=== PATIENT | male | born 1975 | race Hispanic/Latino ===

== ENCOUNTER 2019-04-22 11:49 | Inpatient (IN) | payer OTHER ==
[~2019-04-22] VITALS: Ht 177.8 cm; Wt 93.7 kg
[2019-04-22] MEDS: SODIUM CHLORIDE 0.9% 1000ML 1,000 ML IV SCH ×2 (01:45→16:45)
[~2019-04-22 11:49] MED LIST: CLARITIN10 M2 PO; LISINOPRIL10 MG PO; NEXIUM40 MG PO; PRAVASTATIN SOD40 MG PO
--- OUTSIDE RECORDS SUMMARY | 2019-04-22 11:53 | XMS REPORT | Encounter Summary ---
Author Organization Unknown Address [address] [place] [address] Phone [phone] Reason for Visit Medical Complaint Instructions None recorded. Discussion Note: None recorded. Patient educational handouts: No information available. Plan of Care Reminders Provider Appointments None recorded. Lab None recorded. Referral None recorded. Procedures None recorded. Surgeries None recorded. Imaging None recorded. Medications Name Start Date atorvastatin 80 mg tablet Decara 50,000 unit capsule dicyclomine 20 mg tablet econazole 1 % topical cream esomeprazole magnesium 20 mg capsule,delayed release ezetimibe 10 mg tablet fluconazole 150 mg tablet gemfibrozil 600 mg tablet hydroxyzine HCl 10 mg tablet ivermectin 3 mg tablet lisinopril 30 mg tablet losartan 50 mg tablet metformin ER 500 mg tablet,extended release 24 hr OneTouch Ultra Blue Test Strip pravastatin 80 mg tablet prednisone 10 mg tablet triamcinolone acetonide 0.1 % topical cream Verdeso 0.05 % topical foam Medications Administered None recorded. Vitals Weight Blood Pressure 217 lbs Lab Results None recorded. Allergies None recorded. Problems None recorded. Procedures None recorded. Vaccine List None recorded. Social History None recorded. Past Encounters 04/10/2018 Noemy Ayala PA-C: [address] [place] [address], Ph. History of Present Illness None recorded. Review of Systems Basic Reported By: Patient Physical Exam Adult Basic, Adult Male Complete Reported By: Patient
--- OUTSIDE RECORDS SUMMARY | 2019-04-22 11:53 | XMS REPORT | Continuity of Care Document ---
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 Role Phone [employer] Unavailable Unavailable Problems No Data Provided for This Section Medications Medication Details Route Status Patient Instructions Ordering Provider Order Date Source atorvastatin 80 MG Oral Tablet atorvastatin 80 mg tablet Active [facility] Cholecalciferol 61631 UNT Oral Capsule [Decara] Decara 50,000 unit capsule Active [facility] Dicyclomine Hydrochloride 20 MG Oral Tablet dicyclomine 20 mg tablet Active [facility] Econazole Nitrate 10 MG/ML Topical Cream econazole 1 % topical cream Active [facility] Esomeprazole 20 MG Delayed Release Oral Capsule esomeprazole magnesium 20 mg capsule,delayed release Active [facility] ezetimibe 10 MG Oral Tablet ezetimibe 10 mg tablet Active [facility] Fluconazole 150 MG Oral Tablet fluconazole 150 mg tablet Active [facility] Gemfibrozil 600 MG Oral Tablet gemfibrozil 600 mg tablet Active [facility] Hydroxyzine Hydrochloride 10 MG Oral Tablet hydroxyzine HCl 10 mg tablet Active [facility] Ivermectin 3 MG Oral Tablet ivermectin 3 mg tablet Active [facility] Lisinopril 30 MG Oral Tablet lisinopril 30 mg tablet Active [facility] Losartan Potassium 50 MG Oral Tablet losartan 50 mg tablet Active [facility] 24 HR Metformin hydrochloride 500 MG Extended Release Oral Tablet metformin ER 500 mg tablet,extended release 24 hr Active [facility] OneTouch Ultra Blue Test Strip OneTouch Ultra Blue Test Strip Active [facility] Pravastatin Sodium 80 MG Oral Tablet pravastatin 80 mg tablet Active [facility] Prednisone 10 MG Oral Tablet prednisone 10 mg tablet Active [facility] Triamcinolone Acetonide 1 MG/ML Topical Cream triamcinolone acetonide 0.1 % topical cream Active [facility] Desonide 0.5 MG/ML Topical Foam [Verdeso] Verdeso 0.05 % topical foam Active [facility] Allergies, Adverse Reactions, Alerts No Known Medication Allergies Immunizations No Data Provided for This Section Results No Data Provided for This Section Pathology Reports No Data Provided for This Section Diagnostic Reports No Data Provided for This Section Consultation Notes No Data Provided for This Section Discharge Summaries No Data Provided for This Section History and Physicals No Data Provided for This Section Vital Signs Vital Sign Value Date Comments Source Weight 217 04/10/2018 [facility] Encounters Location Location Details Encounter Type Encounter Number Reason For Visit Attending Provider ADM Date DC Date Status Source [place] - [id number] Noemy Ayala PA-C: [address] [place] [address], Ph. [id number] Noemy Ayala 04/10/2018 [facility] Procedures No Data Provided for This Section Assessment and Plan No Data Provided for This Section Plan of Care No Data Provided for This Section Social History No Data Provided for This Section Family History No Data Provided for This Section Advance Directives No Data Provided for This Section Functional Status No Data Provided for This Section
[2019-04-22] MEDS ORDERED: MORPHINE SULFATE INJ 4 MG/ML INJ 1ML IV STA (11:56)
[2019-04-22] MEDS ORDERED: ONDANSETRON HCL INJ 2MG/ML 2ML 2 MG/ML VIAL IV STA ×2 (11:56→13:43)
[2019-04-22] MEDS ORDERED: SODIUM CHLORIDE 0.9% 1000ML 1,000 ML IV STA (11:56)
[2019-04-22] MEDS ORDERED: SODIUM CHLORIDE 0.9% 1000ML 1,000 ML IV SCH (12:00)
[2019-04-22] MEDS ORDERED: DIATRIZOATE MEGL/DIATRIZOA SOD 30 ML BTL PO ONE (12:11)
--- NOTE | 2019-04-22 12:18 | NUR ---
RADIOLOGY AT BEDSIDE FOR CXR AT THIS TIME.
[2019-04-22 12:30] LABS: INR 0.89; PROTHROMBIN TIME 12.5 seconds (11.9-14.5)
[2019-04-22 12:39] LABS: ALBUMIN 4.3 g/dL (3.5-5.0); ALBUMIN/GLOBULIN RATIO 0.5 (0.8-2.0); AMYLASE 79 U/L (25-125); CALCIUM 10.8 mg/dL (8.4-10.2); LIPASE 168 U/L (8-78)
--- NOTE | 2019-04-22 12:55 | Diagnostic Imaging Report ---
EXAM: CHEST SINGLE (PORTABLE) DATE: 04/22/2019 11:56 AM INDICATION: Elevated blood sugar COMPARISON: None FINDINGS: The trachea is midline. The lungs are symmetrically expanded without evidence for large focal consolidation, pneumothorax, or significant pleural effusion. The cardiac silhouette appears magnified by technique. Mediastinal contours are unremarkable. No acute osseous abnormality is identified. The surrounding soft tissues are unremarkable. IMPRESSION: No acute cardiopulmonary process identified. Signed by: Dr. Isaias Del Rio MD on 04/22/2019 12:51 PM
[2019-04-22 12:57] LABS: BUN/CREATININE RATIO 15 (6-25); CHLORIDE 95 mmol/L (101-111); EST GLOMERULAR FILTRATION RATE > 60 ML/MIN (60-); SODIUM 127 mmol/L (136-144)
[2019-04-22 12:58] LABS: BLOOD UREA NITROGEN 15 mg/dL (8-26); CARBON DIOXIDE 25 mmol/L (22-32)
[2019-04-22 13:01] LABS: GLUCOSE 425 mg/dL (74-118)
--- NOTE | 2019-04-22 13:02 | NUR ---
critical lab value called pt bs 425; demetrius garcia notified
[2019-04-22 13:05] LABS: BILIRUBIN,URINE NEGATIVE (NEGATIVE); CLARITY,URINE CLEAR (CLEAR); COLOR,URINE YELLOW (YELLOW); KETONES,URINE 1+ (NEGATIVE); LEUKOCYTE ESTERASE ,URINE NEGATIVE (NEGATIVE); NITRITE,URINE NEGATIVE (NEGATIVE); PROTEIN,URINE DIPSTICK NEGATIVE (NEGATIVE); URINE UROBILINOGEN 0.2 mg/dL (0.2 - 1)
[2019-04-22] MEDS ORDERED: INSULIN REGULAR, HUMAN 100 UNIT/1 ML 3ML VIAL IV ONE (13:30)
[2019-04-22 13:32] LABS: ALANINE AMINOTRANSFERASE 43 IU/L (0-55); ALKALINE PHOSPHATASE 73 IU/L (40-150); CREATINE KINASE < 70 IU/L (30-200)
[2019-04-22 13:34] LABS: EPITHELIAL CELLS,URINE FEW /LPF
[2019-04-22] MEDS ORDERED: HYDROMORPHONE 1MG/1ML INJ IV STA (13:43)
[2019-04-22 13:51] LABS: BASOPHILS # (AUTO) 0.1 (0.0-0.1); EOSINOPHILS # (AUTO) 0.2 (0.0-0.4); HEMATOCRIT 38.2 % (38.2-49.6); MEAN CORPUSCULAR HEMOGLOBIN 31.3 pg (28-32); MEAN CORPUSCULAR HGB CONC 36.6 g/dL (31-35); MEAN CORPUSCULAR VOLUME 85.3 fL (81-99); RED CELL DISTRIBUTION WIDTH 11.9 % (11.7-14.4)
[2019-04-22 14:00] LABS: PLATELET COUNT 103 x10e3/uL (140-360)
[2019-04-22 14:01] LABS: BASOPHILS % 0.8 % (0.0-1.0); EOSINOPHILS % 2.2 % (0.0-6.0); LYMPHOCYTES % 19.6 % (18.0-39.1); MONOCYTES % 7.9 % (4.4-11.3); NEUTROPHILS % 68.6 % (38.7-80.0)
[2019-04-22 14:02] LABS: LYMPHOCYTES # (AUTO) 1.7 (1.0-3.2); MONOCYTES # (AUTO) 0.7 (0.2-0.8); NEUTROPHILS # (AUTO) 5.8 (2.1-6.9)
--- NOTE | 2019-04-22 14:02 | Diagnostic Imaging Report ---
CT of the abdomen and pelvis, with contrast. History: Abdominal pain. Comparison: None available. Technique: Multidetector CT scanning of the abdomen and pelvis was performed from the level of the lung bases to the inferior pubic rami after intravenous and oral contrast. Coronal and sagittal multiplanar reformations were obtained. RADIATION DOSE: Total DLP: 753.77 mGy*cm Dose modulation, iterative reconstruction, and/or weight based adjustment of the mA/kV was utilized to reduce the radiation dose to as low as reasonably achievable. Findings: A 5 mm pleural-based nodule is identified within the right lower lobe (axial image 7). The lung bases are otherwise clear. The imaged portion of the heart demonstrates no significant abnormalities. The liver is enlarged and diffusely decreased in attenuation compatible with hepatic steatosis. Areas of focal fatty sparing are noted around the gallbladder. Slightly higher than fluid density material is noted within the gallbladder which may reflect a component of biliary sludge. There is no evidence for gallbladder distention, calcified stones, wall thickening, or pericholecystic fluid. There is no biliary ductal dilatation. Enteric contrast material is predominantly within the stomach. The stomach is mildly distended but otherwise unremarkable. The spleen and bilateral adrenal glands are unremarkable. Incidentally noted is a splenule adjacent to the spleen. The pancreas appears unremarkable without evidence for adjacent inflammatory change or pancreatic ductal dilatation. The kidneys are normal in size and location and concentrate contrast and show properly. There is no evidence of hydronephrosis. The ureters are normal course and caliber. The urinary bladder demonstrate no significant abnormalities. The prostate is unremarkable. The abdominal aorta is normal course and caliber with mild atherosclerotic location. The IVC is unremarkable. Please note that lack of contrast opacification of the bowel limits evaluation. The visualized loops of small and large bowel demonstrate no evidence of obstruction or inflammation. The appendix is visualized and appears unremarkable. Diverticula are noted within the sigmoid and descending colon without evidence of adjacent inflammatory changes suggest acute diverticulitis. There is no ascites or intraperitoneal free air. There is a small fat-containing left inguinal hernia. No abnormally enlarged lymph nodes are identified within the abdomen or pelvis. Osseous structures demonstrate no evidence for acute fracture or destructive process. The extraperitoneal soft tissues are unremarkable. IMPRESSION: 1. No acute abdominopelvic process identified correlate with patient's abdominal pain. 2. Hepatomegaly and CT findings of hepatic steatosis with areas of focal fatty sparing identified adjacent to the gallbladder. Possible biliary sludge noted within the gallbladder which otherwise appears unremarkable. 3. Colonic diverticulosis without evidence for acute diverticulitis. 4. 5 mm pulmonary nodule identified within the right lower lobe. In a low-risk patient, no follow-up examination is warranted. In a high-risk patient, consider [address] follow up examination. Signed by: Dr. Isaias Del Rio MD on 04/22/2019 1:58 PM
[2019-04-22] MEDS ORDERED: HYDROMORPHONE 1MG/1ML INJ IV PRN (14:30)
[2019-04-22] MEDS ORDERED: ONDANSETRON HCL INJ 2MG/ML 2ML 2 MG/ML VIAL IV PRN (14:30)
[2019-04-22] MEDS ORDERED: DEXTROSE 50% SYRINGE 50 ML IV PRN (14:30)
--- NOTE | 2019-04-22 14:40 | NUR ---
DIGITAL COMMUNITY MANAGER AT BEDSIDE FOR EXAM AT THIS TIME.
--- OUTSIDE RECORDS SUMMARY | 2019-04-22 14:43 | XMS REPORT ---
Author Author [facility] Address Unknown Phone Unavailable Care Team Providers Care Stope Miner Name Role Phone DONELL HIDALGO Unavailable Unavailable Problems This patient has no known problems. Allergies, Adverse Reactions, Alerts This patient has no known allergies or adverse reactions. Medications This patient has no known medications. Results Test Description Test Time Test Comments Text Results Atomic Results Result Comments CT ABDOMEN/PELVIS W 2019-04-22 13:43:00 [facility] [address] [address] Patient Name: NIKA SARGENT MR #: [id number] : 1975 Age/Sex: 43/M Req #: [id number] Adm Physician: Ordered by: MARELY PETERS WAREHOUSE INSULATION WORKER Report #: [id number] Location: ER Room/Bed: Procedure: [id number] CT/CT ABDOMEN/PELVIS W Exam Date: 04/22/19 Exam Time: 1310 REPORT STATUS: Signed CT of the abdomen and pelvis, with contrast. History: Abdominal pain. Comparison: None available. Technique: Multidetector CT scanning of the abdomen and pelvis was performed from the level of the lung bases to the inferior pubic rami after intravenous and oral contrast. Coronal and sagittal multiplanar reformations were obtained. RADIATION DOSE: Total DLP: 753.77 mGy*cm Dose modulation, iterative reconstruction, and/or weight based adjustment of the mA/kV was utilized to reduce the radiation dose to as low as reasonably achievable. Findings: A 5 mm pleural-based nodule is identified within the right lower lobe (axial image 7). The lung bases are otherwise clear. The imaged portion of the heart demonstrates no significant abnormalities. The liver is enlarged and diffusely decreased in attenuation compatible with hepatic steatosis. Areas of focal fatty sparing are noted around the gallbladder. Slightly higher than fluid density material is noted within the gallbladder which may reflect a component of biliary sludge. There is no evidence for gallbladder distention, calcified stones, wall thickening, or pericholecystic fluid. There is no biliary ductal dilatation. Enteric contrast material is predominantly within the stomach. The stomach is mildly distended but otherwise unremarkable. The spleen and bilateral adrenal glands are unremarkable. Incidentally noted is a splenule adjacent to the spleen. The pancreas appears unremarkable without evidence for adjacent inflammatory change or pancreatic ductal dilatation. The kidneys are normal in size and location and concentrate contrast and show properly. There is no evidence of hydronephrosis. The ureters are normal course and caliber. The urinary bladder demonstrate no significant abnormalities. The prostate is unremarkable. The abdominal aorta is normal course and caliber with mild atherosclerotic location. The IVC is unremarkable. Please note that lack of contrast opacification of the bowel limits evaluation. The visualized loops of small and large bowel demonstrate no evidence of obstruction or inflammation. The appendix is visualized and appears unremarkable. Diverticula are noted within the sigmoid and descending colon without evidence of adjacent inflammatory changes suggest acute diverticulitis. There is no ascites or intraperitoneal free air. There is a small fat-containing left inguinal hernia. No abnormally enlarged lymph nodes are identified within the abdomen or pelvis. Osseous structures demonstrate no evidence for acute fracture or destructive process. The extraperitoneal soft tissues are unremarkable. IMPRESSION: 1. No acute abdominopelvic process identified correlate with patient's abdominal pain. 2. Hepatomegaly and CT findings of hepatic steatosis with areas of focal fatty sparing identified adjacent to the gallbladder. Possible biliary sludge noted within the gallbladder which otherwise appears unremarkable. 3. Colonic diverticulosis without evidence for acute diverticulitis. 4. 5 mm pulmonary nodule identified within the right lower lobe. In a low-risk patient, no follow-up examination is warranted. In a high-risk patient, consider [address] follow up examination. Signed by: Dr. Isaias Del Rio MD on 04/22/2019 1:58 PM Dictated By: ISAIAS DEL RIO MD [id number] Transcribed By: DIAMOND on 04/22/19 1358 COPY TO: MARELY PETERS NP CHEST SINGLE (PORTABLE) 2019-04-22 12:51:00 [address] [place] [address] Patient Name: NIKA SARGENT JR MR #: [id number] : 1975 Age/Sex: 43/M Req #: [id number] Adm Physician: Ordered by: MARELY PETERS NP Report #: [id number] Location: ER Room/Bed: Procedure: [id number] DX/CHEST SINGLE (PORTABLE) Exam Date: 04/22/19 Exam Time: 1230 REPORT STATUS: Signed EXAM: CHEST SINGLE (PORTABLE) DATE: 04/22/2019 11:56 AM INDICATION: Elevated blood sugar COMPARISON: None FINDINGS: The trachea is midline. The lungs are symmetrically expanded without evidence for large focal consolidation, pneumothorax, or significant pleural effusion. The cardiac silhouette appears magnified by technique. Mediastinal contours are unremarkable. No acute osseous abnormality is identified. The surrounding soft tissues are unremarkable. IMPRESSION: No acute cardiopulmonary process identified. Signed by: Dr. Isaias Del Rio MD on 04/22/2019 12:51 PM Dictated By: ISAIAS DEL RIO MD 1251 Transcribed By: DIAMOND on 04/22/19 1251 COPY TO: MARELY PETERS NP
--- OUTSIDE RECORDS SUMMARY | 2019-04-22 14:43 | XMS REPORT | Continuity of Care Document ---
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 [id number] Noemy Ayala 04/10/2018 [facility] Procedures No Data [...]
--- NOTE | 2019-04-22 14:45 | NUR ---
PT STATES PAIN HAS IMPROVED, BUT NOT GONE, STATES 4/10 AT THIS TIME; WILL CONTINUE TO MONITOR.
[2019-04-22] MEDS ORDERED: IOPAMIDOL 370 MG/ML 200 ML INFUS..BTL INJ ONE (14:46)
[2019-04-22] MEDS ORDERED: SODIUM CHLORIDE 0.9% 50ML 50 ML ONE (14:46)
--- NOTE | 2019-04-22 15:27 | Diagnostic Imaging Report ---
EXAM: US GALLBLADDER DATE: 04/22/2019 2:22 PM INDICATION: Abdominal pain COMPARISON: CT abdomen/pelvis from earlier 04/22/2019 FINDINGS: The pancreas is not well-visualized secondary to overlying bowel gas. The liver appears diffusely increased in echogenicity compatible with hepatic steatosis. Areas of focal fatty sparing noted adjacent to the gallbladder. No focal hepatic abnormality is identified. The main portal vein is patent with antegrade flow and diameter of 1.0 cm, within normal limits. The gallbladder is unremarkable. There is no evidence for shadowing stones/sludge, wall thickening, or pericholecystic fluid. There is no intra or extrahepatic biliary ductal dilatation. Sonographic Wakefield's sign is negative. The right kidney is normal in size measuring 10.9 cm in length with normal cortical thickness/echogenicity. There is no evidence for solid renal mass, hydronephrosis, or shadowing calculi. The visual as portions of the IVC and aorta are within normal limits. There is no ascites present. IMPRESSION: Sonographic findings compatible with hepatic steatosis with areas of fatty sparing adjacent to the gallbladder. Otherwise, unremarkable right upper quadrant/gallbladder ultrasound examination. Signed by: Dr. Isaias Del Rio MD on 04/22/2019 3:24 PM
--- NOTE | 2019-04-22 15:49 | NUR ---
DR. AGEE ROUNDING ON PT AT THIS TIME.
[2019-04-22 16:37] LABS: CHOLESTEROL 655 MD/DL (0-199)
[2019-04-22 16:38] LABS: HDL CHOLESTEROL 18 MG/DL (40-60)
[2019-04-22 16:41] LABS: CHOL/HDL RATIO 36.4 (3.9-4.7)
[2019-04-22] MEDS: FAMOTIDINE 20 MG/2 ML VIAL IV SCH (16:44)
[2019-04-22] MEDS: INSULIN LISPRO 100 UNIT/1 ML 3ML VIAL SQ SCH ×2 (16:46→22:16)
[2019-04-22 17:21] LABS: TRIGLYCERIDES 6400 MG/DL (0-149)
[2019-04-22] MEDS: ONDANSETRON HCL INJ 2MG/ML 2ML 2 MG/ML VIAL IV PRN (19:18)
[2019-04-22] MEDS ORDERED: HEPARIN SOD (PORCINE) 5,000 UNIT/ML VIAL SC SCH (21:00)
--- NOTE | 2019-04-22 21:18 | NUR ---
Patient arrived to the unit from ED as new admission via wheelchair. Adm Dx was abd pain, biliary colic, pancreatitis, type 2 DM. Pt alert and oriented x3. at bedside. Pt ambulatory in room prn. Pt NPO diet. Pt c/o frequent LUQ and LLQ abd pain. On IVF (NS at 150ml/hr). Will be medicated accordingly. Call nunes within reach. Will monitor closely.
[2019-04-22 21:30] VITALS: BP 139/87
--- NOTE | 2019-04-22 22:32 | NUR ---
Called Dr. Peng (Admit MD) and informed pt stated pain med does not last long. MD ordered to change Dilaudid 1mg frequency from Q4h to Q3h. MD contemplating on transferring pt to ICU due to extremely high Triglyceride levels (6,400).
--- NOTE | 2019-04-22 22:40 | NUR ---
Spoke with Dr. Peng and informed he wanted to just keep pt on the MedSurg unit for now and ordered additional AM lab (Lipid Panel).
[2019-04-22] MEDS: HYDROMORPHONE 1MG/1ML INJ IV PRN (22:48)
[2019-04-22 23:00] VITALS: BP 139/87
[2019-04-22] MEDS ORDERED: GEMFIBROZIL600 MG PO (23:32)
[2019-04-22] MEDS ORDERED: METFORMIN HCL500 MG PO (23:32)
[2019-04-22] MEDS ORDERED: HYDROCHLOROTHIA25 MG PO (23:32)
[2019-04-22] MEDS ORDERED: METOPROLOL TART25 MG PO (23:32)
[2019-04-22] MEDS ORDERED: BENICAR20 MG PO (23:32)
[2019-04-23] VITALS (7 sets, daily range): BP systolic 113–139; BP diastolic 66–85
[2019-04-23] MEDS: SODIUM CHLORIDE 0.9% 1000ML 1,000 ML IV SCH ×4 (01:45→23:43)
[2019-04-23] MEDS: HYDROMORPHONE 1MG/1ML INJ IV PRN ×2 (02:20→05:46)
[2019-04-23] MEDS: ONDANSETRON HCL INJ 2MG/ML 2ML 2 MG/ML VIAL IV PRN ×3 (02:20→16:12)
[2019-04-23 05:40] LABS: BASOPHILS # (AUTO) 0.1 (0.0-0.1); BASOPHILS % 0.5 % (0.0-1.0); EOSINOPHILS % 0.1 % (0.0-6.0); HEMATOCRIT 37.8 % (38.2-49.6); HEMOGLOBIN 15.5 g/dL (14.0-18.0); LYMPHOCYTES # (AUTO) 0.8 (1.0-3.2); LYMPHOCYTES % 5.9 % (18.0-39.1); MEAN CORPUSCULAR HEMOGLOBIN 35.1 pg (28-32); MEAN CORPUSCULAR VOLUME 85.5 fL (81-99); MONOCYTES # (AUTO) 1.2 (0.2-0.8); MONOCYTES % 8.7 % (4.4-11.3); NEUTROPHILS # (AUTO) 11.8 (2.1-6.9); NEUTROPHILS % 84.1 % (38.7-80.0); PLATELET COUNT 108 x10e3/uL (140-360); RED BLOOD COUNT 4.42 x10e6/uL (4.3-5.7); RED CELL DISTRIBUTION WIDTH 11.9 % (11.7-14.4)
[2019-04-23 06:10] LABS: ALBUMIN 3.6 g/dL (3.5-5.0); ALBUMIN/GLOBULIN RATIO 0.7 (0.8-2.0); ALKALINE PHOSPHATASE 64 IU/L (40-150); ANION GAP 24.6 mmol/L (8-16); BLOOD UREA NITROGEN 6 mg/dL (7-26); BUN/CREATININE RATIO 6 (6-25); CALCIUM 8.7 mg/dL (8.4-10.2); CARBON DIOXIDE 11 mmol/L (22-29); CHLORIDE 94 mmol/L (98-107); CREATININE, SERUM 1.08 mg/dL (0.72-1.25); EST GLOMERULAR FILTRATION RATE > 60 ML/MIN (60-); GLUCOSE 241 mg/dL (74-118); LIPASE 409 U/L (8-78); POTASSIUM 3.6 mmol/L (3.5-5.1); SODIUM 126 mmol/L (136-145)
--- NOTE | 2019-04-23 07:17 | NUR ---
Received bedside report from night nurse. Patient resting in bed, no signs of distress at this time. All safety measures in place. Family at bedside. Will continue to monitor.
[2019-04-23 07:27] LABS: ALANINE AMINOTRANSFERASE 37 IU/L (0-55)
[2019-04-23 08:01] LABS: CHOL/HDL RATIO 90.6 (3.9-4.7); CHOLESTEROL 453 MD/DL (0-199); HDL CHOLESTEROL 5 MG/DL (40-60)
[2019-04-23 08:04] LABS: LYMPHOCYTES % (MANUAL) 7 % (19-48); MONOCYTES % (MANUAL) 7 % (3.4-9.0); NEUTROPHILS % (MANUAL) 86 % (40-74); PLATELET ESTIMATE MODERATELY DECREASED; PLATELET MORPHOLOGY COMMENT FEW LARGE; RBC MORPHOLOGY COMMENT NORMAL
[2019-04-23 08:38] LABS: TRIGLYCERIDES 3290 MG/DL (0-149)
[2019-04-23] MEDS: ACETAMINOPHEN 325 MG SUPP PR PRN (08:40)
[2019-04-23] MEDS: HYDROMORPHONE 2MG/ML 2 MG/ML ML IV PRN ×4 (08:40→23:43)
[2019-04-23] MEDS: FAMOTIDINE 20 MG/2 ML VIAL IV SCH ×2 (09:06→16:12)
[2019-04-23] MEDS: INSULIN LISPRO 100 UNIT/1 ML 3ML VIAL SQ SCH ×4 (09:30→21:00)
--- NOTE | 2019-04-23 09:31 | NUR ---
Attempted to call consult for Dr. Holden, but per his answering service he is out of town and has no other physician covering for him. notified Dr. Torres
--- NOTE | 2019-04-23 10:50 | NUR ---
Notified Dr. Torres that there are no ICU beds at this time. Per Dr. Torres cancel ICU order and no need for insulin drip at this time.
--- NOTE | 2019-04-23 16:14 | NUR ---
Patient leaving unit for CT abdomen. In stable condition, no signs of distress at this time.
[2019-04-23 16:28] LABS: BASOPHILS # (AUTO) 0.1 (0.0-0.1); BASOPHILS % 0.5 % (0.0-1.0); EOSINOPHILS % 0.2 % (0.0-6.0); HEMATOCRIT 39.2 % (38.2-49.6); HEMOGLOBIN 14.7 g/dL (14.0-18.0); LYMPHOCYTES # (AUTO) 0.8 (1.0-3.2); MEAN CORPUSCULAR HEMOGLOBIN 32.8 pg (28-32); MEAN CORPUSCULAR HGB CONC 37.5 g/dL (31-35); MEAN CORPUSCULAR VOLUME 87.5 fL (81-99); MONOCYTES # (AUTO) 1.1 (0.2-0.8); MONOCYTES % 8.4 % (4.4-11.3); NEUTROPHILS # (AUTO) 10.6 (2.1-6.9); NEUTROPHILS % 84.3 % (38.7-80.0); PLATELET COUNT 137 x10e3/uL (140-360); RED BLOOD COUNT 4.48 x10e6/uL (4.3-5.7); RED CELL DISTRIBUTION WIDTH 12.4 % (11.7-14.4)
--- NOTE | 2019-04-23 16:32 | NUR ---
Patient returned to unit. In stable condition, no signs of distress at this time. All safety measures in place. Family at bedside. Will continue to monitor.
[2019-04-23 16:48] LABS: ALANINE AMINOTRANSFERASE 30 IU/L (0-55); ALBUMIN 3.3 g/dL (3.5-5.0); ALBUMIN/GLOBULIN RATIO 0.7 (0.8-2.0); ALKALINE PHOSPHATASE 56 IU/L (40-150); ANION GAP 20.6 mmol/L (8-16); BLOOD UREA NITROGEN 6 mg/dL (7-26); BUN/CREATININE RATIO 6 (6-25); CALCIUM 8.7 mg/dL (8.4-10.2); CARBON DIOXIDE 13 mmol/L (22-29); CHLORIDE 101 mmol/L (98-107); CREATININE, SERUM 1.09 mg/dL (0.72-1.25); EST GLOMERULAR FILTRATION RATE > 60 ML/MIN (60-); GLUCOSE 216 mg/dL (74-118); MAGNESIUM 1.7 MG/DL (1.3-2.1); POTASSIUM 3.6 mmol/L (3.5-5.1); SODIUM 131 mmol/L (136-145)
--- NOTE | 2019-04-23 17:00 | NUR ---
Dr. Torres notified of repeat labs.
--- NOTE | 2019-04-23 18:07 | Diagnostic Imaging Report ---
EXAM: CTA OF THE ABDOMINAL AORTA AND PELVIC ARTERIES INDICATION: ^rule out mesenteric ischemia ^[id number] ^[id number] COMPARISON: CT abdomen/pelvis, 04/22/2019 TECHNIQUE: Multi-detector CT technology was employed. CTA of the abdomen and pelvis was performed after the administration of IV contrast. IV CONTRAST: 100 mL of Isovue-370 ORAL CONTRAST: None COMPLICATIONS: None RADIATION DOSE: Total DLP: 639.40 mGy*cm Estimated effective dose: (DLP x 0.015 x size factor) mSv CTDIvol has been reviewed. It is below the limits set by the Radiation Protocol Committee (RPC). For optimization of anatomic evaluation, multiplanar reconstruction, maximum intensity projections, and advanced 3-D off-line postprocessing were performed on a dedicated stand-alone workstation under the direct supervision of the interpreting physician. FINDINGS: Potential study limitations: None. VASCULAR WITH ADVANCED 3-D OFF-LINE POSTPROCESSING: The abdominal aorta is normal in course, caliber, and contour. There is no acute aortic pathology . Aortic plaques: Mild. The abdominal aorta measures: 2.4 cm at the mesenteric segment 1.9 cm at the renal segment 1.6 cm at the mid infrarenal segment 1.7 cm at the aortic bifurcation. 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 The superior and inferior mesenteric arteries are widely patent. Renal arteries are patent bilaterally with an accessory renal artery noted on the left. The pelvic arteries are normal in caliber and contour. There are mild atherosclerotic changes of the pelvic arteries. LOWER CHEST: Atelectasis is noted at both lung bases, greater on the right. There is a nonspecific 5 mm nodule in the right lower lobe (series 3, image 8) heart size normal.. ABDOMEN: The liver is diffusely hypodense compatible with steatosis. No intrahepatic mass or bile duct dilatation. There is mild fatty sparing adjacent to the gallbladder. The gallbladder is dense related to vicarious excretion from the previous CT. Spleen appears unremarkable. Since the previous exam extensive inflammatory fat stranding has developed in the right upper and midabdomen. This in [place] the pancreatic head, also involving the duodenum with wall thickening and extending to the hepatic flexure of the colon with wall thickening. There is no pneumoperitoneum or discrete drainable fluid collection. The adrenal glands appear normal. Both kidneys are normal in size, shape, and density. There is no abnormal mass or hydronephrosis. No dominant lymph node mass in the abdomen, retroperitoneum or pelvis. PELVIS: There is sigmoid diverticulosis with no CT evidence for acute diverticulitis. Urinary bladder appears unremarkable. The IVC and portal system are unremarkable. The splenic vein and SMV are noted to be surrounded by inflammatory stranding in the right abdomen. BONES: No acute or suspicious bony lesion. There is narrowing of the L5-S1 disc space with mild retrolisthesis of L5 on S1. There is straightening of the lumbar lordosis. Superficial surrounding soft tissue unremarkable. There is a left inguinal hernia containing fat. IMPRESSION: 1. An extensive inflammatory process has developed in the right retroperitoneum and mid to lower abdomen since the previous CT. This surrounds the region of the pancreatic head and may well represent pancreatitis. Inflammation also involves the duodenum and the hepatic flexure of the colon with wall thickening. There is no pneumoperitoneum or discrete drainable fluid collection. The inflammatory process may, less likely, primarily arise from the duodenum or the colon. 2. Again noted is hepatomegaly and evidence for steatosis. 3. Again noted is colonic diverticulosis with no evidence for acute diverticulitis. 4. Again noted is a nonspecific 5 mm nodule at the right lung base with recommendations as noted on the previous report. 5. Superior and inferior mesenteric arteries are widely patent. No specific pathology is seen in the abdominal aorta. 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 Renal arteries are patent with accessory artery on the left. Signed by: Dr. Alfred Merchant M.D. on 04/23/2019 6:03 PM
--- NOTE | 2019-04-23 18:10 | NUR ---
Dr. Torres notified of CTA results
[2019-04-23] MEDS ORDERED: IOPAMIDOL 370 MG/ML 200 ML INFUS..BTL INJ ONE (18:24)
[2019-04-23] MEDS ORDERED: SODIUM CHLORIDE 0.9% 100 ML 100 ML ONE (18:25)
--- NOTE | 2019-04-23 23:36 | History and Physical ---
REASON FOR ADMISSION: Abdominal pain and hyperlipidemia. HISTORY OF PRESENT ILLNESS: The patient is a gentleman with history of hyperlipidemia, hypertension, and diabetes, and reflux disease, who presented to the hospital with a 1-day onset of abdominal pain similar to the past when he has had pancreatitis. Initial laboratory data shows a lipase of 168 and amylase is 79, but his triglycerides are 6400 with a cholesterol of 655 and HDL 18 and a sugar of [address] scan did not show evidence of an acute abdominal process, but did show some hepatic steatosis. No evidence of pancreatitis. PAST MEDICAL HISTORY: Diabetes, hypertension, and hyperlipidemia. MEDICATIONS: See MAR. ALLERGIES: LANTUS. SOCIAL HISTORY: Nonsmoker, nondrinker. Lives at home with his . FAMILY HISTORY: Diabetes. PHYSICAL EXAMINATION: VITAL SIGNS: Temperature is 99.8, pulse is 124, blood pressure is 122/72, and saturation 96% on room air. GENERAL: He is in no apparent distress, lying in bed. NECK: Supple. No lymphadenopathy. CARDIOVASCULAR: Regular rate and rhythm. LUNGS: Clear to auscultation bilaterally. ABDOMEN: Soft. He has some slight tenderness in the mid epigastric region, but no peritoneal signs. No distention. No masses. EXTREMITIES: No clubbing or cyanosis. NEUROLOGIC: Nonfocal. ASSESSMENT AND PLAN: 1. Abdominal pain. Does not appear to be pancreatitis by imaging studies and with his high lipids and abdominal pain, I am going to get CT angiogram to rule out any mesenteric ischemia and we will consult GI. 2. Hyperlipidemia. We will consult Cardiology due to the high levels of cholesterol when the patient was showing me levels from about a month ago that were elevated, but not this extremely elevated. 3. Hypertension. We will continue to monitor. 4. Tachycardia. Continue to monitor. 5. Dehydration. We will continue with IV fluids. 6. Diabetes. We will continue with sliding scale insulin. Please see also chart for full details. MD GAYLA Crenshaw/MODL /[id number]
--- NOTE | 2019-04-23 23:51 | History and Physical ---
THIS IS A GI CONSULT, NOT H & P REASON FOR CONSULT: Acute pancreatitis. HISTORY OF PRESENTING ILLNESS: A 43-year-old male, who came to the emergency room late last night with acute onset of midepigastric pain radiating into the upper back. Blood work revealed significantly elevated lipase level to 409 (normal 78), amylase level was also elevated to 79. Liver enzymes were noted normal. CT scan of the abdomen and pelvis with contrast showed hepatomegaly, hepatic steatosis, some biliary sludge, no gallbladder wall thickening. His triglycerides were noted extremely elevated to 6400, this subsequently came down to 3290. The patient got admitted with a working diagnosis of acute pancreatitis secondary to hypertriglyceridemia. He is currently being kept n.p.o., aggressively being resuscitated with normal saline IV fluid. On further questioning, the patient stated that he drinks alcohol on a regular basis, 3-4 times a week. Last attack of pancreatitis was 3 years ago. REVIEW OF SYSTEMS: A 12-point system reviewed. Symptomatology is limited to GI system. PAST MEDICAL HISTORY: Hyperlipidemia, history of pancreatitis in the past, type 2 diabetes, GERD, hypertension. PAST SURGICAL HISTORY: None. SOCIAL HISTORY: Alcohol, , lives with his , drinks alcohol on a regular basis, no smoking or any illicit drug use. FAMILY HISTORY: Noncontributory. ALLERGIES: GLARGINE INSULIN. HOME MEDICATIONS: Nexium, gemfibrozil, hydrochlorothiazide, metformin, metoprolol, olmesartan, pravastatin. INPATIENT MEDICATIONS: Reviewed, the patient is on normal saline IV fluid, intravenous famotidine, intravenous Dilaudid as well as lispro insulin as per sliding scale. PHYSICAL EXAMINATION: VITAL SIGNS: Temperature 99, pulse 125, respiration 18, blood pressure 121/79, and oxygen saturation 96% on room air. GENERAL: Not in any acute distress. HEENT: Oral mucosa is moist. Anicteric sclerae. CVS: S1, S2 regular. LUNGS: Bilaterally grossly clear. ABDOMEN: Soft. Palpable epigastric tenderness on mild palpation without rebound, rigidity, or guarding. No shifting dullness. Positive bowel sounds. EXTREMITIES: Warm. No leg edema. LABORATORY DATA: Sodium 131, potassium 3.6, chloride 101, bicarb 13, BUN 6, creatinine 1.09, glucose 216. Liver enzymes normal. Lipase level initially 168, this climbed up to 409. Amylase level 79. TSH is 0.508. WBC 12.60, hemoglobin 14.7, hematocrit 39.2, MCV 87.5, and platelet count 137. Ultrasound of the gallbladder showed sonographic finding compatible with hepatic steatosis with area of fatty sparing adjacent to the gallbladder. Otherwise unremarkable right upper quadrant/gallbladder ultrasound examination. CT of the abdomen and pelvis with contrast showed: 1. No acute abdominopelvic process identified, correlate with the patient's abdominal pain. 2. Hepatomegaly and CT finding of hepatic steatosis with areas of focal fatty sparing identified adjacent to the gallbladder. Possible biliary sludge noted within the gallbladder, which otherwise appears unremarkable. 3. Colonic diverticulosis without evidence of acute diverticulitis. 4. A 5 mm pulmonary nodule identified within the right lower lobe. In a low- risk patient, no followup examination is warranted. In a high-risk patient, consider 12-month CT followup examination. IMPRESSION: Acute pancreatitis secondary to hypertriglyceridemia. The patient does not have any local or distant complications at this time. PLAN: Aggressive IV fluid resuscitation, n.p.o. for pancreatic rest, supportive care. Agree to continue insulin to bring down triglycerides level. Monitor him clinically. The patient will be allowed to eat when he states that he is hungry. Return of appetite is the best sign of recovery from pancreatitis. I thank Dr. Torres for allowing me to participate in the care of this patient. Johann Cagle MD SA/LEXIE /[id number]
[2019-04-24] VITALS (8 sets, daily range): BP systolic 119–128; BP diastolic 66–78
[2019-04-24] MEDS: HYDROMORPHONE 2MG/ML 2 MG/ML ML IV PRN ×6 (03:04→20:53)
[2019-04-24] MEDS: SODIUM CHLORIDE 0.9% 1000ML 1,000 ML IV SCH ×3 (06:34→20:37)
[2019-04-24 06:40] LABS: BASOPHILS % 0.4 % (0.0-1.0); EOSINOPHILS % 0.1 % (0.0-6.0); HEMOGLOBIN 13.9 g/dL (14.0-18.0); LYMPHOCYTES # (AUTO) 0.7 (1.0-3.2); LYMPHOCYTES % 7.2 % (18.0-39.1); MEAN CORPUSCULAR HEMOGLOBIN 31.6 pg (28-32); MEAN CORPUSCULAR HGB CONC 35.6 g/dL (31-35); MEAN CORPUSCULAR VOLUME 88.6 fL (81-99); MONOCYTES # (AUTO) 0.8 (0.2-0.8); MONOCYTES % 8.3 % (4.4-11.3); NEUTROPHILS # (AUTO) 8.5 (2.1-6.9); NEUTROPHILS % 83.4 % (38.7-80.0); PLATELET COUNT 98 x10e3/uL (140-360); RED CELL DISTRIBUTION WIDTH 12.9 % (11.7-14.4)
[2019-04-24 07:05] LABS: ALANINE AMINOTRANSFERASE 27 IU/L (0-55); ALBUMIN 2.9 g/dL (3.5-5.0); ALBUMIN/GLOBULIN RATIO 0.7 (0.8-2.0); ALKALINE PHOSPHATASE 48 IU/L (40-150); ANION GAP 15.6 mmol/L (8-16); BLOOD UREA NITROGEN 9 mg/dL (7-26); BUN/CREATININE RATIO 9 (6-25); CALCIUM 8.9 mg/dL (8.4-10.2); CARBON DIOXIDE 18 mmol/L (22-29); CHLORIDE 102 mmol/L (98-107); CREATININE, SERUM 0.95 mg/dL (0.72-1.25); EST GLOMERULAR FILTRATION RATE > 60 ML/MIN (60-); GLUCOSE 230 mg/dL (74-118); POTASSIUM 3.6 mmol/L (3.5-5.1); SODIUM 132 mmol/L (136-145)
[2019-04-24] MEDS: INSULIN LISPRO 100 UNIT/1 ML 3ML VIAL SQ SCH ×4 (07:30→20:38)
--- NOTE | 2019-04-24 07:34 | NUR ---
Received patient this morning and a/ox3, in bed, orders per Dr. sweet for new medications and will enter orders at this time. No resp distress, denies any pains, call light within reach and will monitor.
--- NOTE | 2019-04-24 07:39 | NUR ---
Pharmacy does not carry Vascepa, ordered in 2 Grams for this patient.
--- NOTE | 2019-04-24 07:52 | Consultation ---
DATE OF CONSULTATION: 04/22/2019 Cardiology Consultation REQUESTING PHYSICIAN: Dr. Peng. REASON FOR CONSULTATION: Hypertriglyceridemia. HISTORY OF PRESENT ILLNESS: This is a 43-year-old male with history of hypertriglyceridemia, hypertension, and diabetes mellitus, who presents with complaints of abdominal pain. The patient reports he developed abdominal pain yesterday morning around 9 nausea. On checking his blood sugar, it was found to be quite high, so he presented to the ER for further evaluation. On interview, he reports he had been having left-sided chest pain for the last few weeks, in severity without shortness of breath, nausea, diaphoresis or radiation . It lasted for approximately 5 minutes at a time and occurs on average once a day. The patient notes that heart rate has been fast for the last two weeks. He denies any edema orthopnea or PND. REVIEW OF SYSTEMS: Negative except as per HPI. PAST MEDICAL HISTORY: 1. Hypertriglyceridemia. 2. Hypertension. 3. Diabetes mellitus. 4. Palpitations. 5. Tonsillectomy. 6. Vasectomy. ALLERGIES: PLEASE SEE EMR. MEDICATIONS: Please see medication list. SOCIAL HISTORY: Denies tobacco or illicit drugs. He drinks alcohol couple times a week. FAMILY HISTORY: Pertinent for cousin with an enlarged heart. PHYSICAL EXAMINATION: VITAL SIGNS: Vitals reviewed. GENERAL: Awake and alert, in no distress. LUNGS: Clear to auscultation bilaterally. HEENT: Normocephalic and atraumatic. Pupils are equal. No scleral icterus. NECK: Supple. No thyromegaly or cervical lymphadenopathy. No carotid bruits. LUNGS: Clear to auscultation bilaterally. No wheezing or crackles. CARDIOVASCULAR: Regular rhythm, tachycardic. No murmur. Normal S1 and S2. ABDOMEN: Soft and tender to palpation. EXTREMITIES: No edema. NEUROLOGIC: Nonfocal exam. LABORATORY DATA: 1. EKG normal sinus rhythm. 2. tachycardia. IMPRESSION: 1. Pancreatitis. 2. Hypertriglyceridemia. 3. Chest pain. 4. Hypertension. 5. Diabetes mellitus. RECOMMENDATIONS: Treatment of acute pancreatitis per primary service. Obtain echocardiogram. Trend cardiac markers. Change statin to atorvastatin. Stop gemfibrozil and start fenofibrate, add Vascepa. Once the patient is improved from pancreatitis, he will need ischemic evaluation with nuclear stress test. This can be done as an outpatient. He will rule out for myocardial infarction. Thank you for this consult. We will continue follow. Angella Rios MD ABS/MODL /[id number]
[2019-04-24 08:22] LABS: BAND NEUTROPHILS % (MANUAL) 13 %; EOSINOPHILS % (MANUAL) 1 % (0-7); LYMPHOCYTES % (MANUAL) 2 % (19-48); MONOCYTES % (MANUAL) 7 % (3.4-9.0); NEUTROPHILS % (MANUAL) 77 % (40-74)
[2019-04-24 08:23] LABS: POLYCHROMASIA FEW; RBC MORPHOLOGY COMMENT ABNORMAL
[2019-04-24 08:24] LABS: ANISOCYTOSIS SLIGHT; PLATELET ESTIMATE SLIGHTLY DECREASED; PLATELET MORPHOLOGY COMMENT RARE EDTA CLUMPING; POIKILOCYTOSIS SLIGHT
--- NOTE | 2019-04-24 08:30 | NUR ---
Patient with fever, notified Dr. Torres and no new orders at this time, possibly related to inflammatory process of the pancreas and gall bladder, will monitor.
[2019-04-24 09:02] LABS: AMYLASE 85 U/L (25-125); LIPASE 171 U/L (8-78)
[2019-04-24] MEDS: FAMOTIDINE 20 MG/2 ML VIAL IV SCH ×2 (09:08→16:33)
[2019-04-24] MEDS: ACETAMINOPHEN 325 MG SUPP PR PRN (09:08)
--- NOTE | 2019-04-24 11:25 | NUR ---
Nutrition Screen Note RD Recommendation for Physician: -Rec advancing diet to low fat/ ADA 2000 as medically appropriate Plan of Care: RD following, monitoring for tolerance and adequacy Nutrition reason for involvement: Nutrition Risk Trigger MST Primary Diagnose(s): pancreatitis, hypertriglyceridemia PMH: Diabetes, hypertension, and hyperlipidemia Ht:70 in Wt: 215lb BMI: 30.8kg/m2 IBW: 166lb +/- 10% RD Assessment: (04/24) Chart reviewed. Labs and meds reviewed. 43yo M, who was admitted for 1 day onset of abdominal pain. Lipase, TG and cholesterol have trend down. Pt was on Dilaudid for pain management. Visited pt in the room. Pt reported watching his diet but had occasional 1-2 beers a week. Pt with history of pancreatitis in the past and was given low fat diet instructions. Pt was following the diet for a long time but fell off in the last couple months. Pt developed pain after having some alcohol with his friends over the weekend. Pt was motivated to get back to a healthier eating habits once d/c from here. Pt and had no other question during my time of visit. Will continue to monitor and follow. Current Diet: NPO Malnutrition Evaluation (04/24/2019) The patient does not meet criteria for a specified degree of malnutrition at this time. Will re-evaluate at follow-up as appropriate. Diet Education Needs Assessment: Diet education not indicated. Nutrition Care Level: low Signed: Marjan Davila, MS, RD, LD
--- NOTE | 2019-04-24 18:01 | NUR ---
Patient alert and responsive, pains well managed, still NPO, no fevers this evening, call light within reach, will monitor.
--- NOTE | 2019-04-24 19:39 | NUR ---
PT IS RESTING IN BED WITH FAMILY AT BEDSIDE. RESPIRATION IS EVEN AND UNLABORED, NO DISTRESS NOTED. BED IN THE LOWEST POSITION, LOCKED, AND CALL LIGHT WITHIN REACH. WILL CONTINUE TO MONITOR.
[2019-04-24] MEDS: ATORVASTATIN 40 MG TAB PO SCH (20:37)
[2019-04-24] MEDS: FENOFIBRATE 145 MG TAB PO SCH (20:37)
[2019-04-24] MEDS: ONDANSETRON HCL INJ 2MG/ML 2ML 2 MG/ML VIAL IV PRN (20:53)
[2019-04-24] MEDS ORDERED: ATORVASTATIN 20 MG TAB PO SCH (21:00)
--- NOTE | 2019-04-24 21:51 | Progress Note ---
DATE: 04/24/2019 SUBJECTIVE: The patient continues to have abdominal pain, not feeling hungry. However, pain intensity has significantly decreased. REVIEW OF SYSTEMS: GENERAL: No fever or chills. CVS: No chest pain or palpitations. RESPIRATORY: No cough or expectoration. MEDICATIONS: Reviewed as per MAR, he is getting insulin lispro per protocol, normal saline at 150 mL an hour, fenofibrate 145 mg p.o. at bedtime, atorvastatin 40 mg p.o. at bedtime, Zofran 4 mg IV q.6 hours as needed, acetaminophen 325 mg q.4 hours as needed, hydromorphone 1.5 mg every 3 hours as needed. PHYSICAL EXAMINATION: VITAL SIGNS: Temperature 98.7, pulse 131-124, respiration 20, blood pressure 127/74, oxygen saturation 97% on room air. GENERAL: Not in any acute distress. HEENT: Oral mucosa is moist. Anicteric sclerae. ABDOMEN: Soft. Palpable epigastric and right upper quadrant tenderness on palpation without rebound, rigidity, or guarding. Positive bowel sounds. LABORATORY DATA: WBC 10.18, hemoglobin 13.9, hematocrit 39, MCV 88.6, platelet count 98. Sodium 132, potassium 3.6, chloride 102, bicarb 18, BUN 9, creatinine 0.95, glucose 230. Liver enzymes normal. CTA of the abdomen and pelvis showed extensive inflammatory process with retroperitoneal fluid collection in the mid and lower abdomen along with inflammation around the head of the pancreas, colonic diverticulosis, hepatomegaly with steatosis, nonspecific 5 mm nodule in the right lung. Superior and inferior mesenteric arteries are widely patent. No specific pathology seen in the abdominal aorta. 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 Renal arteries are patent with accessory artery on the left. IMPRESSION: 1. Acute pancreatitis with peripancreatic fluid collection secondary to hypertriglyceridemia as well as alcoholism. 2. I also suspect the patient has alcoholic liver cirrhosis given low platelet count, highly suspicious for underlying portal hypertension. PLAN: Decrease normal saline IV fluid to 100 mL an hour, continue supportive care, monitor clinically. If the patient does not feel hungry from tomorrow, we will then consider starting TPN. Dr. Mendez, my associate will be covering the weekend. He will be given the sign-out about this patient. Johann Cagle MD SA/LEXIE /[id number]
--- NOTE | 2019-04-24 22:01 | Progress Note ---
DATE: 04/24/2019 Cardiology Progress Note SUBJECTIVE: The patient denies chest pain or shortness of breath. OBJECTIVE: VITAL SIGNS: Temperature 100.4 degrees, pulse 131, respiratory rate 18, blood pressure 120/67, and oxygen saturation 94% on room air. GENERAL: Awake, alert, in no acute distress. LUNGS: Clear to auscultation bilaterally. No wheezes or crackles. CARDIOVASCULAR: Tachycardic, but regular. No murmur. Normal S1, S2. ABDOMEN: Soft, tender to palpation. EXTREMITIES: No edema. CARDIAC MEDICATIONS: Fenofibrate 145 mg p.o. daily, atorvastatin 40 mg p.o. at bedtime. LABORATORY DATA: WBC 10.1, hemoglobin 13.9, hematocrit 39, platelets 98. Sodium 132, potassium 3.6, chloride 102, CO2 of 18, BUN 9, and creatinine 0.95. TELEMETRY: Sinus tachycardia. IMPRESSION: 1. Acute pancreatitis. 2. Hypertriglyceridemia. 3. Chest pain. 4. Hypertension. 5. Diabetes mellitus. RECOMMENDATIONS: Treatment of pancreatitis per primary service and GI. Echocardiogram has been ordered and is pending. Trend cardiac markers. Given the patient's significant hypertriglyceridemia, he has been changed to atorvastatin from pravastatin and started on fenofibrate. Gemfibrozil has been stopped. He will need to be started on Lovaza or Vascepa. However, this is not on formulary at [facility]. We will start as outpatient. Once he is improved from his pancreatitis, he will need ischemic evaluation with nuclear stress test. This can be done as an outpatient. CTA of the abdomen and pelvis was noted. He has evidence of pancreatitis on repeat CT. 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 We will monitor for now. Start the patient on aspirin. Continue risk factor modification. The patient's blood pressure is well controlled. Thank you for this consult. We will continue to follow. Angella Rios MD ABS/MODL /[id number]
[2019-04-25] VITALS (8 sets, daily range): BP systolic 110–156; BP diastolic 71–92
[2019-04-25] MEDS: HYDROMORPHONE 2MG/ML 2 MG/ML ML IV PRN ×5 (00:05→22:10)
[2019-04-25] MEDS: SODIUM CHLORIDE 0.9% 1000ML 1,000 ML IV SCH ×2 (06:18→15:04)
--- NOTE | 2019-04-25 07:25 | NUR ---
Patient alert and responsive, c/o pain at this time during rounds, will medicate and will continue with bowel rest. Call light within reach, will monitor.
[2019-04-25] MEDS: MORPHINE SULFATE 2 MG/ML SYR 1ML IV PRN ×2 (07:26→11:34)
[2019-04-25] MEDS: ONDANSETRON HCL INJ 2MG/ML 2ML 2 MG/ML VIAL IV PRN ×2 (07:27→15:04)
[2019-04-25] MEDS: INSULIN LISPRO 100 UNIT/1 ML 3ML VIAL SQ SCH ×4 (07:30→21:00)
[2019-04-25 07:47] LABS: BASOPHILS # (AUTO) 0.1 (0.0-0.1); BASOPHILS % 0.6 % (0.0-1.0); EOSINOPHILS # (AUTO) 0.1 (0.0-0.4); EOSINOPHILS % 0.6 % (0.0-6.0); HEMATOCRIT 34.7 % (38.2-49.6); HEMOGLOBIN 12.1 g/dL (14.0-18.0); LYMPHOCYTES # (AUTO) 0.8 (1.0-3.2); LYMPHOCYTES % 7.5 % (18.0-39.1); MEAN CORPUSCULAR HEMOGLOBIN 31.3 pg (28-32); MEAN CORPUSCULAR HGB CONC 34.9 g/dL (31-35); MEAN CORPUSCULAR VOLUME 89.9 fL (81-99); MONOCYTES # (AUTO) 1.1 (0.2-0.8); MONOCYTES % 10.6 % (4.4-11.3); NEUTROPHILS # (AUTO) 8.3 (2.1-6.9); NEUTROPHILS % 78.9 % (38.7-80.0); PLATELET COUNT 101 x10e3/uL (140-360); RED BLOOD COUNT 3.86 x10e6/uL (4.3-5.7); RED CELL DISTRIBUTION WIDTH 13.2 % (11.7-14.4)
[2019-04-25 08:09] LABS: ALANINE AMINOTRANSFERASE 21 IU/L (0-55); ALBUMIN 2.4 g/dL (3.5-5.0); ALBUMIN/GLOBULIN RATIO 0.6 (0.8-2.0); ALKALINE PHOSPHATASE 47 IU/L (40-150); AMYLASE 75 U/L (25-125); ANION GAP 14.5 mmol/L (8-16); BLOOD UREA NITROGEN 8 mg/dL (7-26); BUN/CREATININE RATIO 9 (6-25); CALCIUM 9.2 mg/dL (8.4-10.2); CARBON DIOXIDE 17 mmol/L (22-29); CHLORIDE 105 mmol/L (98-107); CREATININE, SERUM 0.87 mg/dL (0.72-1.25); EST GLOMERULAR FILTRATION RATE > 60 ML/MIN (60-); GLUCOSE 213 mg/dL (74-118); LIPASE 132 U/L (8-78); MAGNESIUM 1.9 MG/DL (1.3-2.1); POTASSIUM 3.5 mmol/L (3.5-5.1); SODIUM 133 mmol/L (136-145)
[2019-04-25] MEDS: FAMOTIDINE 20 MG/2 ML VIAL IV SCH ×2 (09:00→17:01)
--- NOTE | 2019-04-25 10:39 | NUR ---
Patient c/o headaches, sweating and not feeling well. 4 days of no nutrition, rounds by Dr. Mendez and orders for naso jejunum tube feed placement and to start Glucerna 1.5 at 20cc/hour after placement. VS normal, Blood sugar checked at 200cc, will monitor.
[2019-04-25] MEDS: ACETAMINOPHEN 325 MG SUPP PR PRN (10:42)
--- NOTE | 2019-04-25 12:48 | NUR ---
Dr. Tam per IR tech states that patient doesn't want to complete the procedure and wanted Dr. Juares's number to speak with him. IR gets to have IR tech call and as per reports.
[2019-04-25] MEDS: ACETAMINOPHEN 1000 MG/100 ML IV PRN (15:04)
[2019-04-25] MEDS ORDERED: METOPROLOL TARTRATE INJ 1 MG/ML VIAL IV NR (15:45)
[2019-04-25] MEDS ORDERED: METOPROLOL TARTRATE INJ 1 MG/ML VIAL IV PRN (15:45)
--- NOTE | 2019-04-25 17:28 | NUR ---
Spoke with Dr. Torres and he stated if patient feels better and does not want the Naso-Jejunum tube now, it could be placed on Saturday. Patient in agreement, pains well managed, no vomiting, remains NPO, no resp distress, call light within reach, feeling better with pain, will monitor.
--- NOTE | 2019-04-25 17:37 | Diagnostic Imaging Report ---
Exam: Head CT without contrast History: Headache Comparison studies: Head CT 07/20/2015. Technique: Axial images were obtained from the skull base to the vertex. Coronal and sagittal images reconstructed from the axial data. Dose modulation, iterative reconstruction, and/or weight based adjustment of the mA/kV was utilized to reduce the radiation dose to as low as reasonably achievable. Radiation dose: Total DLP: 921 mGy*cm. Estimated effective dose: DLP x 0.015 Intravenous contrast: None Findings: Scalp: No abnormalities. Bones: No fractures, blastic or lytic lesions. Brain sulci: Appropriate for age. Ventricles: Normal in size and configuration. No hydrocephalus. Extra-axial spaces: No masses, no fluid collection. Parenchyma: No abnormal densities. No masses, acute hemorrhage, acute or chronic vascular insults. Sellar/suprasellar region: No abnormalities. Craniocervical junction: Patent foramen magnum. No Chiari one malformation. Included paranasal sinuses: Clear aside from a small opacified accessory right frontal air cell which has slightly decreased since 07/20/2015. Middle ear and included mastoids: Clear. IMPRESSION: No intracranial abnormalities. Signed by: Dr. Gennaro Shore M.D. on 04/25/2019 5:33 PM
--- NOTE | 2019-04-25 18:40 | Progress Note ---
DATE: Cardiology Progress Note SUBJECTIVE: The patient reports left upper extremity abdominal pain. He also states that he is having a very bad headache and is not feeling well. He denies any chest pain or palpitations at this time with shortness of breath. OBJECTIVE: VITAL SIGNS: Temperature 97.6, pulse 130, respiratory rate 18, blood pressure is 148/92, oxygen saturation 92% on room air. GENERAL: Alert and oriented x3, resting in bed, appears to be suffering from headache. NECK: Supple. No JVD noted. LUNGS: Clear to auscultation throughout. No wheezing, rhonchi, or crackles. CARDIOVASCULAR: Tachycardic, but quite regular. No murmurs. No gallops. Normal S1, S2. ABDOMEN: Tender to palpation. EXTREMITIES: Lower extremities, no edema. 2+ pedal pulses. CARDIOVASCULAR MEDICATIONS: Atorvastatin 40 mg p.o. at bedtime, fenofibrate 145 mg p.o. at bedtime. LABORATORY DATA: WBC 10.55, hemoglobin 12.1, hematocrit 34.7, platelets 101. Sodium 133, potassium 3.5, BUN 8, creatinine 0.87. Lipase 132, amylase 75. IMPRESSION: 1. Acute pancreatitis. 2. Hypertriglyceridemia. 3. Chest pain. 4. Hypertension. 5. Diabetes mellitus. RECOMMENDATIONS: Treatment of pancreatitis per primary team and also GI. The patient is n.p.o. at this time. Echocardiogram has been ordered and cardiac enzymes have been completed and also negative. Maintain on telemetry at all time. Medications were adjusted yesterday. The patient will need upon discharge. These medications are not available . The patient will also need ischemic evaluation with a nuclear stress test, this may be done as outpatient. Initiate IV beta-vj at this time, given patient's n.p.o. status. We will continue to follow the patient very closely. Dictated by Alejandra Palmer NP MD TONE Heaton/LEXIE /[id number]
--- NOTE | 2019-04-25 19:45 | NUR ---
Received patient from day nurse, patient is npo, patient aware, patient did not have the ordered ng tube placement done today, as per day nurse MD aware of it, safty and fall precautions in place, patient also encouraged to call for help, verbalized understanding.
[2019-04-25] MEDS: ATORVASTATIN 40 MG TAB PO SCH (21:00)
[2019-04-25] MEDS: FENOFIBRATE 145 MG TAB PO SCH (21:00)
[2019-04-26] VITALS (8 sets, daily range): BP systolic 125–156; BP diastolic 64–93
[2019-04-26] MEDS: ACETAMINOPHEN 1000 MG/100 ML IV PRN (00:20)
[2019-04-26] MEDS: HYDROMORPHONE 2MG/ML 2 MG/ML ML IV PRN ×4 (02:36→23:10)
[2019-04-26] MEDS: SODIUM CHLORIDE 0.9% 1000ML 1,000 ML IV SCH ×3 (05:57→21:40)
--- NOTE | 2019-04-26 06:35 | NUR ---
patient condition throughout the night was stable.
[2019-04-26] MEDS: INSULIN LISPRO 100 UNIT/1 ML 3ML VIAL SQ SCH ×4 (07:30→21:00)
[2019-04-26] MEDS: FAMOTIDINE 20 MG/2 ML VIAL IV SCH ×2 (08:35→17:00)
--- NOTE | 2019-04-26 10:19 | NUR ---
Patient started on clear liquid diet this morning and tolerated well, will monitor.
--- NOTE | 2019-04-26 14:40 | Progress Note ---
DATE: Cardiology Progress Note SUBJECTIVE: The patient is without any new complaints. He states that his headache and also abdominal pain is gone. He is feeling well today. OBJECTIVE: VITAL SIGNS: Temperature 97.4, pulse 108, respiratory rate 15, blood pressure 156/93, and oxygen saturation 96% on room air. GENERAL: Alert and oriented x3. Resting comfortably in the bed. Does not appear to be in any acute distress. NECK: Supple. No JVD noted. LUNGS: Clear to auscultation throughout. No wheezing. No rhonchi or crackles. CARDIOVASCULAR: Tachycardic. Regular rate and rhythm. No murmurs. No gallops. Normal S1 and S2. ABDOMEN: Slight tenderness to the left upper quadrant. EXTREMITIES: No edema noted. 2+ pedal pulses. CARDIOVASCULAR MEDICATIONS: Metoprolol 2.5 mg q.6 hours p.r.n. for hypertension, atorvastatin 40 mg p.o. at bedtime. LABORATORY DATA: There are no new labs today. TELEMETRY: Sinus rhythm. IMPRESSION: 1. Acute pancreatitis. 2. Hypertriglyceridemia. 3. Chest pain. 4. Hypertension. 5. Diabetes mellitus. RECOMMENDATIONS: Treatment for pancreatitis per primary team. The patient is now on clear liquid diet. Echocardiogram has been ordered and cardiac enzymes have been completed and also negative. Maintain on telemetry at this time. Medications have been adjusted and the patient was initiated on a beta-vj yesterday. We will continue to monitor blood pressure closely. This patient will also need ischemic workup once he has recovered from his acute illness. This may be done as outpatient. We will continue to monitor the patient very closely. In addition, this patient will need addition of Acepa to his current medication regimen. Dictated by Alejandra Palmer NP MD TONE Heaton/LEXIE /[id number]
[2019-04-26] MEDS: ONDANSETRON HCL INJ 2MG/ML 2ML 2 MG/ML VIAL IV PRN (15:05)
--- NOTE | 2019-04-26 15:06 | NUR ---
Patient had lunch clear liquids and started having some abdominal pains, will hold back on po intake as instructed by attending, medicated for pain and nausea at this time, will monitor.
--- NOTE | 2019-04-26 16:05 | NUR ---
Visit made by the Spiritual Care Department Pastoral Visitor, Earl Howell. PV provided pastoral presence, hospitality, and supportive listening. Pastoral Visitor informed pt/family of the scope of [facility] and availability. DOUGLAS GUERRERO [employer] Advisor Spiritual Care Department O: [phone] Pager: [phone] ([phone] number calling from)
[2019-04-26] MEDS: METOPROLOL TARTRATE 25 MG TAB PO SCH (17:00)
--- NOTE | 2019-04-26 17:00 | Consultation ---
DATE OF CONSULTATION: SUBJECTIVE: The patient is doing well over night. States he is about 85% improved with his pancreatitis pain. He would really like to try something liquidy for nutritional support. He states his overall headache is much better and his cranial CT was negative yesterday and laboratory data was improving. OBJECTIVE: VITAL SIGNS: Temperature are , pulse 107, blood pressure 143/93, and sats 98% on room air. GENERAL: He is in no apparent distress, lying in bed. NECK: Supple. CARDIOVASCULAR: Regular rate and rhythm. LUNGS: Clear to auscultation bilaterally. ABDOMEN: Significantly less tender on exam with no peritoneal signs. Good bowel sounds. Nondistended. EXTREMITIES: No clubbing or cyanosis. NEUROLOGIC: Nonfocal. ASSESSMENT AND PLAN: 1. Pancreatitis. We will go ahead and continue with current care since he is improving. We will go ahead and start clear liquid diet. 2. Hypertension and tachycardia. We will continue with beta-vj. 3. Hyperlipidemia. We will continue with his fenofibrate and Lipitor. 4. Diabetes. Continue with current care and monitoring. Please see hospital chart for full details. MD GAYLA Crenshaw/MODL /[id number]
[2019-04-26] MEDS: FENOFIBRATE 145 MG TAB PO SCH (21:00)
[2019-04-26] MEDS: ATORVASTATIN 40 MG TAB PO SCH (21:00)
[2019-04-27] VITALS (8 sets, daily range): BP systolic 121–144; BP diastolic 75–87
[2019-04-27] MEDS: HYDROMORPHONE 2MG/ML 2 MG/ML ML IV PRN ×5 (04:01→22:18)
[2019-04-27 05:41] LABS: BASOPHILS % 0.2 % (0.0-1.0); EOSINOPHILS # (AUTO) 0.5 (0.0-0.4); EOSINOPHILS % 3.9 % (0.0-6.0); HEMATOCRIT 33.7 % (38.2-49.6); HEMOGLOBIN 11.7 g/dL (14.0-18.0); LYMPHOCYTES # (AUTO) 0.9 (1.0-3.2); MEAN CORPUSCULAR HEMOGLOBIN 30.7 pg (28-32); MEAN CORPUSCULAR HGB CONC 34.7 g/dL (31-35); MEAN CORPUSCULAR VOLUME 88.5 fL (81-99); MONOCYTES # (AUTO) 1.8 (0.2-0.8); MONOCYTES % 13.2 % (4.4-11.3); NEUTROPHILS % 67.7 % (38.7-80.0); RED BLOOD COUNT 3.81 x10e6/uL (4.3-5.7); RED CELL DISTRIBUTION WIDTH 12.8 % (11.7-14.4)
[2019-04-27 06:04] LABS: ALANINE AMINOTRANSFERASE 47 IU/L (0-55); ALBUMIN 2.3 g/dL (3.5-5.0); ALBUMIN/GLOBULIN RATIO 0.6 (0.8-2.0); ALKALINE PHOSPHATASE 65 IU/L (40-150); AMYLASE 68 U/L (25-125); ANION GAP 14.9 mmol/L (8-16); BLOOD UREA NITROGEN 8 mg/dL (7-26); BUN/CREATININE RATIO 10 (6-25); CALCIUM 9.1 mg/dL (8.4-10.2); CARBON DIOXIDE 18 mmol/L (22-29); CHLORIDE 101 mmol/L (98-107); CREATININE, SERUM 0.78 mg/dL (0.72-1.25); EST GLOMERULAR FILTRATION RATE > 60 ML/MIN (60-); GLUCOSE 203 mg/dL (74-118); LIPASE 102 U/L (8-78); SODIUM 131 mmol/L (136-145)
[2019-04-27 06:33] LABS: POTASSIUM 2.9 mmol/L (3.5-5.1)
[2019-04-27] MEDS ORDERED: POTASSIUM CHLORIDE 10MEQ/100ML 400 ML IV ONE (06:45)
--- NOTE | 2019-04-27 07:10 | NUR ---
Patient endorsed to next shift for continuity of care.
[2019-04-27] MEDS: METOPROLOL TARTRATE 25 MG TAB PO SCH ×2 (08:45→18:15)
[2019-04-27] MEDS: FAMOTIDINE 20 MG/2 ML VIAL IV SCH ×2 (08:45→18:15)
[2019-04-27] MEDS: INSULIN LISPRO 100 UNIT/1 ML 3ML VIAL SQ SCH ×4 (08:45→21:00)
[2019-04-27 08:51] LABS: BAND NEUTROPHILS % (MANUAL) 8 %; LYMPHOCYTES % (MANUAL) 7 % (19-48); MONOCYTES % (MANUAL) 8 % (3.4-9.0)
[2019-04-27 09:01] LABS: METAMYELOCYTES % (MANUAL) 2 % (0-0); NEUTROPHILS % (MANUAL) 73 % (40-74); RBC MORPHOLOGY COMMENT ABNORMAL; TOXIC GRANULATION MODERATE
[2019-04-27 09:02] LABS: ANISOCYTOSIS SLIGHT; PLATELET ESTIMATE MODERATELY DECREASED; POLYCHROMASIA FEW
[2019-04-27 09:06] LABS: PLATELET MORPHOLOGY COMMENT MOD EDTA CLUMPING; POIKILOCYTOSIS SLIGHT
[2019-04-27 10:09] LABS: PLATELET COUNT 178 x10e3/uL (140-360)
[2019-04-27] MEDS: ONDANSETRON HCL INJ 2MG/ML 2ML 2 MG/ML VIAL IV PRN (11:50)
--- NOTE | 2019-04-27 14:30 | NUR ---
Spoke to Dr. Mendez regarding [place] tube placement- he stated "Dr. Cagle will see that patient later today and make a decision".
--- NOTE | 2019-04-27 17:54 | Progress Note ---
DATE: 04/27/2019 Cardiology Progress Note SUBJECTIVE: No major events overnight. OBJECTIVE: VITAL SIGNS: Temperature afebrile, pulse 102, respiratory rate 19, blood pressure 138/79, saturating 98% on room air. GENERAL: No acute distress. CARDIOVASCULAR: Regular rate and rhythm. No murmurs, rubs, or gallops. LUNGS: Clear to auscultation bilaterally. ABDOMEN: Mildly tender left upper quadrant. No rebound or guarding. NEURO AND PSYCH: Alert and oriented to person, place, and time. Normal affect. INPATIENT MEDICATIONS: Reviewed. LABORATORY DATA: Reviewed. TELEMETRY DATA: Reviewed, shows sinus rhythm with occasional sinus tachycardia. ASSESSMENT AND PLAN: 1. Acute pancreatitis. 2. Hypertriglyceridemia. 3. Chest pain. 4. Hypertension. 5. Diabetes. RECOMMENDATIONS: Treatment of pancreatitis per primary team. Echocardiogram shows normal LV function. Remains in sinus tachycardia secondary to pancreatitis. IV hydration per primary team. Thank you for this consult. We will continue to follow. MD JUANCHO Ibarra/CHINMAYL /[id number]
[2019-04-27] MEDS: SODIUM CHLORIDE 0.9% 1000ML 1,000 ML IV SCH (18:15)
--- NOTE | 2019-04-27 19:18 | NUR ---
Patient received lying in bed. AAO x 4. Family at bedside. Patient had no complaints of pain. No signs of respiratory distress. IVF infusing at 100 cc/hr. Fall precautions implemented. Patient instructed to call for assistance when needed. Call light within reach.
--- NOTE | 2019-04-27 20:38 | NUR ---
Dr. Cagle here to see patient. New order received to discontinue order for " Nasal Jejunum feeding tube placement".
[2019-04-27] MEDS: FENOFIBRATE 145 MG TAB PO SCH (20:53)
[2019-04-27] MEDS: ATORVASTATIN 40 MG TAB PO SCH (20:53)
--- NOTE | 2019-04-27 21:12 | NUR ---
Dr. Cagle paged to inquire about advancing patient's diet. Awaiting call back.
--- NOTE | 2019-04-27 23:32 | Progress Note ---
DATE: 04/27/2019 GI progress report SUBJECTIVE: The patient reports significant improvement in abdominal pain. He is tolerating oral diet. He also had one bowel movement. He walked on the floor. REVIEW OF SYSTEMS: GENERAL: No fever or chills. CARDIOVASCULAR SYSTEM: No chest pain or palpitation. RESPIRATORY: No cough or expectoration. MEDICATIONS: Reviewed as per OCT. PHYSICAL EXAMINATION: VITAL SIGNS: Temperature 97.2, pulse 103, respirations 18, blood pressure 124/87, and oxygen saturation 100% on room air. GENERAL: Not in any acute distress. HEENT: Oral mucosa is moist. ABDOMEN: Soft. Mild epigastric tenderness on deep palpation without rebound, rigidity, or guarding. Positive bowel sounds. LABORATORY DATA: WBC 13.23, hemoglobin 11.7, hematocrit 33.7, MCV 88.5, and platelet count 178. PT 12.5, INR 0.89, and PTT 33. Sodium 131, potassium 2.9, chloride 101, bicarb 18, BUN 8, creatinine 0.78. Liver enzymes, total bilirubin 1.3, AST 36, ALT 47, and alkaline phosphatase 65. IMPRESSION: Acute pancreatitis secondary to hypertriglyceridemia as well as due to alcohol consumption. PLAN: Acute pancreatitis has resolved, the patient tolerating oral diets. Replete potassium. If he continues to tolerate oral feed/solid food, then the patient can be discharged home tomorrow. I counseled him for complete abstinence from alcohol. He should be on fenofibrate for hypertriglyceridemia. The patient will follow up with me in my office within one week after discharge. The patient has my business card. Johann Cagle MD SA/LEXIE /[id number]
[2019-04-28] VITALS (9 sets, daily range): BP systolic 113–131; BP diastolic 65–83
[2019-04-28] MEDS: HYDROMORPHONE 2MG/ML 2 MG/ML ML IV PRN ×5 (02:11→20:58)
[2019-04-28] MEDS: SODIUM CHLORIDE 0.9% 1000ML 1,000 ML IV SCH ×2 (03:31→17:34)
--- NOTE | 2019-04-28 05:36 | NUR ---
Dr. Torres here to see patient. New order received to advance diet from clear liquid to full liquid diet.
--- NOTE | 2019-04-28 07:00 | NUR ---
Walking rounds done. Shift report given to oncoming nurse.
[2019-04-28] MEDS: INSULIN LISPRO 100 UNIT/1 ML 3ML VIAL SQ SCH ×4 (08:00→20:48)
[2019-04-28] MEDS: ONDANSETRON HCL INJ 2MG/ML 2ML 2 MG/ML VIAL IV PRN ×2 (08:00→17:10)
[2019-04-28] MEDS: METOPROLOL TARTRATE 25 MG TAB PO SCH ×2 (08:00→17:20)
[2019-04-28] MEDS: FAMOTIDINE 20 MG/2 ML VIAL IV SCH ×2 (08:00→17:20)
--- NOTE | 2019-04-28 17:00 | Progress Note ---
DATE: 04/28/2019 Cardiology Progress Note SUBJECTIVE: No major events overnight. OBJECTIVE: VITAL SIGNS: Temperature afebrile, pulse 99, respiratory rate 17, blood pressure 119/76, saturating 96% on room air. GENERAL: No acute distress. CARDIOVASCULAR: Regular rate and rhythm. No murmurs, rubs, or gallops. LUNGS: Clear to auscultation bilaterally. ABDOMEN: Soft, nontender, nondistended. NEURO AND PSYCH: Alert and oriented to person, place, and time. Normal affect. INPATIENT MEDICATIONS: Reviewed. LABORATORY DATA: Reviewed. TELEMETRY DATA: Reviewed, shows sinus rhythm with occasional sinus tachycardia. ASSESSMENT: 1. Acute pancreatitis, now resolved. 2. Hypertriglyceridemia. 3. Chest pain. 4. Hypertension. 5. Diabetes. RECOMMENDATIONS: Pancreatitis is now improved. The patient is taking oral medicines. Please replace his potassium, otherwise doing well from cardiovascular standpoint. Continue current medication regimen for hypertriglyceridemia. MD JUANCHO Ibarra/LEXIE /[id number]
--- NOTE | 2019-04-28 18:50 | NUR ---
Got bedside shift report from previous nurse. Call light within reach. Patient in bed. Family at bedside. Patient in no pain or distress.
[2019-04-28] MEDS ORDERED: PANTOPRAZOLE SOD 40 MG TABEC PO ONE (20:15)
[2019-04-28] MEDS: FENOFIBRATE 145 MG TAB PO SCH (20:48)
[2019-04-28] MEDS: ATORVASTATIN 40 MG TAB PO SCH (20:48)
[2019-04-29] VITALS (11 sets, daily range): BP systolic 102–137; BP diastolic 56–88
--- NOTE | 2019-04-29 00:22 | Progress Note ---
DATE: 04/28/2019 GI Progress Report SUBJECTIVE: The patient is tolerating full liquid diet. However, he is still getting postprandial pain. He is having regular bowel movement. REVIEW OF SYSTEMS: GENERAL: No fever or chills. CVS: No chest pain or palpitation. RESPIRATORY: No cough or expectoration. MEDICATIONS: Reviewed as per OCT. PHYSICAL EXAMINATION: VITAL SIGNS: Temperature 96, pulse 109, respirations 16, blood pressure 131/82, and oxygen saturation 98% on room air. GENERAL: Not in any acute distress. HEENT: Oral mucosa is moist. Anicteric sclerae. ABDOMEN: Soft. Mild palpable epigastric and right upper quadrant tenderness on deep palpation without rebound, rigidity, or guarding. Positive bowel sounds. LABORATORY DATA: WBC 13.23, hemoglobin 11.7, hematocrit 33.7, MCV 88.5, and platelet count 178. The last electrolytes on 04/27/2019 showed sodium 131, potassium 2.9, chloride 101, bicarb 18, BUN 8, creatinine 0.78, and lipase level 102. IMPRESSION: Acute hepatitis secondary to alcohol as well as hypertriglyceridemia. PLAN: Advance to low-cholesterol diet. Discontinue IV fluids. Switch to famotidine with pantoprazole daily. Pain control. We will consider pancreatic enzyme supplementation if the patient continues to complain of postprandial abdominal pain. If the patient tolerates solid food tomorrow, then observe him tomorrow and he can be discharged in the evening. The patient has my business card and he will follow up with me in my office within one week. Johann Cagle MD SA/LEXIE /[id number]
[2019-04-29] MEDS: HYDROMORPHONE 2MG/ML 2 MG/ML ML IV PRN ×5 (03:12→23:22)
[2019-04-29 06:06] LABS: BASOPHILS % 0.3 % (0.0-1.0); EOSINOPHILS # (AUTO) 0.3 (0.0-0.4); EOSINOPHILS % 2.7 % (0.0-6.0); HEMATOCRIT 32.6 % (38.2-49.6); HEMOGLOBIN 11.7 g/dL (14.0-18.0); LYMPHOCYTES # (AUTO) 1.3 (1.0-3.2); LYMPHOCYTES % 9.9 % (18.0-39.1); MEAN CORPUSCULAR HGB CONC 35.9 g/dL (31-35); MEAN CORPUSCULAR VOLUME 86.2 fL (81-99); MONOCYTES # (AUTO) 1.9 (0.2-0.8); MONOCYTES % 14.6 % (4.4-11.3); NEUTROPHILS # (AUTO) 6.2 (2.1-6.9); NEUTROPHILS % 48.9 % (38.7-80.0); RED BLOOD COUNT 3.78 x10e6/uL (4.3-5.7); RED CELL DISTRIBUTION WIDTH 12.5 % (11.7-14.4)
[2019-04-29 06:09] LABS: PLATELET COUNT 199 x10e3/uL (140-360)
[2019-04-29 06:22] LABS: ALANINE AMINOTRANSFERASE 61 IU/L (0-55); ALBUMIN 2.2 g/dL (3.5-5.0); ALBUMIN/GLOBULIN RATIO 0.6 (0.8-2.0); ALKALINE PHOSPHATASE 61 IU/L (40-150); AMYLASE 70 U/L (25-125); BLOOD UREA NITROGEN 8 mg/dL (7-26); BUN/CREATININE RATIO 11 (6-25); CALCIUM 8.8 mg/dL (8.4-10.2); CARBON DIOXIDE 22 mmol/L (22-29); CHLORIDE 98 mmol/L (98-107); CREATININE, SERUM 0.74 mg/dL (0.72-1.25); EST GLOMERULAR FILTRATION RATE > 60 ML/MIN (60-); GLUCOSE 230 mg/dL (74-118); LIPASE 111 U/L (8-78); MAGNESIUM 1.8 MG/DL (1.3-2.1); SODIUM 131 mmol/L (136-145)
[2019-04-29 06:36] LABS: BAND NEUTROPHILS % (MANUAL) 4 %; EOSINOPHILS % (MANUAL) 7 % (0-7); LYMPHOCYTES % (MANUAL) 16 % (19-48); METAMYELOCYTES % (MANUAL) 2 % (0-0); MONOCYTES % (MANUAL) 12 % (3.4-9.0); MYELOCYTES % (MANUAL) 5 % (0-0); NEUTROPHILS % (MANUAL) 54 % (40-74)
[2019-04-29 06:38] LABS: PLATELET ESTIMATE ADEQUATE; RBC MORPHOLOGY COMMENT NORMAL
[2019-04-29 06:40] LABS: PLATELET MORPHOLOGY COMMENT FEW EDTA CLUMPING
--- NOTE | 2019-04-29 07:08 | NUR ---
Bedside shift report given to oncoming nurse. Call light within reach. Patient in no pain or distress.
--- NOTE | 2019-04-29 07:13 | NUR ---
Received bedside report from night nurse. Patient resting in bed, no signs of distress at this time. All safety measures in place. Will continue to monitor.
[2019-04-29] MEDS: INSULIN LISPRO 100 UNIT/1 ML 3ML VIAL SQ SCH ×4 (08:05→20:40)
[2019-04-29] MEDS: METOPROLOL TARTRATE 25 MG TAB PO SCH ×2 (08:05→17:17)
--- NOTE | 2019-04-29 19:05 | NUR ---
Bedside report given to night nurse. Patient resting in bed, in stable condition, no signs of distress at this time. All safety measures in place. Family at bedside.
[2019-04-29] MEDS: FENOFIBRATE 145 MG TAB PO SCH (20:44)
[2019-04-29] MEDS: ATORVASTATIN 40 MG TAB PO SCH (20:44)
--- NOTE | 2019-04-29 23:24 | Progress Note ---
DATE: 04/29/2019 GI Progress Report SUBJECTIVE: The patient reports postprandial abdominal pain. He thinks that he is not ready to eat. Denies any associated nausea or vomiting. Having bowel movements. REVIEW OF SYSTEMS: GENERAL: No fever or chills. CVS: No chest pain or palpitations. RESPIRATORY: No cough or expectoration. MEDICATIONS: Reviewed as per MAR. PHYSICAL EXAMINATION: VITAL SIGNS: Temperature 97.3, pulse 74, respirations 18, blood pressure 125/70, and oxygen saturation 99% on room air. GENERAL: Not in any acute distress. Oral mucosa is moist. Anicteric sclerae. ABDOMEN: Soft, palpable mild epigastric and right upper quadrant tenderness without rebound, rigidity, or guarding. Positive bowel sounds. LABORATORY DATA: WBC at 12.75, hemoglobin 11.7, hematocrit 32.6, MCV 86.2, and platelet count 199. Sodium 131, potassium 3.0, chloride 98, bicarb 22, BUN 8, creatinine 0.74, and glucose 230. Liver enzymes showed a total bilirubin 1.1, AST 37, ALT 61, and alkaline phosphatase 61. IMPRESSION: 1. Acute pancreatitis has resolved. However, patient continues to have postprandial abdominal pain. It seems like the patient may develop chronic pancreatitis down the line. 2. Hypokalemia. 3. Hyperglycemia. 4. Hypertriglyceridemia. 5. Regular alcohol use. PLAN: Discontinue oral feeding. We will consider NJ placement under fluoroscopy by IR. We will start post pyloric enteral feeding. Supplement pancreatic enzymes. Continue analgesics as needed. Blood sugar controlled as per primary team. Johann Cagle MD SA/LEXIE /[id number]
[2019-04-30] VITALS (7 sets, daily range): BP systolic 116–146; BP diastolic 71–90
[2019-04-30] MEDS ORDERED: POTASSIUM CHLORIDE 20MEQ/100ML 100 ML IV ONE ×2 (05:15→07:15)
[2019-04-30] MEDS: HYDROMORPHONE 2MG/ML 2 MG/ML ML IV PRN ×4 (05:44→22:38)
--- NOTE | 2019-04-30 07:12 | NUR ---
Received bedside report from night nurse. Patient resting in bed, no signs of distress or c/o pain at this time. All safety measures in place. Will continue to monitor.
[2019-04-30] MEDS: PANCRELIPASE 6000 ER CAPSULE PO SCH ×3 (08:00→17:00)
[2019-04-30] MEDS: INSULIN LISPRO 100 UNIT/1 ML 3ML VIAL SQ SCH ×4 (08:00→22:05)
[2019-04-30] MEDS: METOPROLOL TARTRATE 25 MG TAB PO SCH ×2 (08:02→17:00)
--- NOTE | 2019-04-30 08:46 | NUR ---
Patient leaving unit via wheelchair for CT. No signs of distress or c/o pain at this time. Will continue to monitor upon return.
--- NOTE | 2019-04-30 09:15 | NUR ---
Patient returned to unit from CT. In stable condition, no signs of distress or c/o pain at this time. All safety measures in place. Will continue to monitor.
--- NOTE | 2019-04-30 09:38 | Diagnostic Imaging Report ---
EXAM: CT Abdomen WITH intravenous contrast INDICATION: Abdominal pain, pelvic otitis COMPARISON: CT abdomen pelvis of 04/22/2019 TECHNIQUE: Abdomen and pelvis were scanned utilizing a multidetector helical scanner from the lung base to the iliac crest after administration of IV contrast. Coronal and sagittal reformations were obtained. Routine protocol was performed. Scan was performed during portal venous phase. IV CONTRAST: 100mL of Isovue 370 ORAL CONTRAST: Water RADIATION DOSE: Total DLP: 497.6 mGy*cm Dose modulation, iterative reconstruction, and/or weight based adjustment of the mA/kV was utilized to reduce the radiation dose to as low as reasonably achievable. FINDINGS: LOWER THORAX: 4 mm right lower lobe pulmonary nodule, unchanged. Mild bibasilar subsegmental atelectasis. Trace left pleural effusion. Scattered atherosclerotic coronary artery calcifications. HEPATOBILIARY: Severe diffuse hepatic steatosis. Hepatomegaly. No focal liver lesion. No biliary ductal dilation. Hyperdense fluid within the gallbladder, possibly reflecting vicarious excretion of contrast. SPLEEN: No splenomegaly. PANCREAS: Again seen is extensive fat stranding and peripancreatic fluid surrounding the pancreatic head and second part of the duodenum. Unchanged hypoattenuation associated with the pancreatic head. The extent of associated retroperitoneal fluid has increased compared to the CT of 04/23/2019. ADRENALS: No adrenal nodules. KIDNEYS/URETERS: No hydronephrosis, stones, or solid mass lesions. PERITONEUM / RETROPERITONEUM: Retroperitoneal fluid, increased from the previous study as above. LYMPH NODES: No lymphadenopathy. VESSELS: The mesenteric and portal vasculature remains patent. 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 GI TRACT: Diverticulosis without CT evidence of diverticulitis. BONES AND SOFT TISSUES: Unremarkable. IMPRESSION: Continued evolution of necrotizing pancreatitis with interval increase in extent of associated right retroperitoneal fluid. Mesenteric and portal vasculature remains patent. Hepatomegaly and severe hepatic steatosis. Unchanged right lower lobe pulmonary nodule. In a low-risk patient, no follow-up examination is warranted. In a high-risk patient, consider [address] follow up examination. Signed by: Katheryn Alberto MD on 04/30/2019 9:35 AM
--- NOTE | 2019-04-30 11:33 | NUR ---
Informed Dr. Torres of CT abdomen results. Received orders to proceed with NJ tube placement with fluoroscopy.
--- NOTE | 2019-04-30 13:50 | NUR ---
Instructed by radiology to insert NG tube, and then radiology will advance the tube with a wire. Contacted Dr. Torres to clarify order. Dr. Torres said to ask GI doctor.
[2019-04-30] MEDS ORDERED: SODIUM CHLORIDE 0.9% 50ML 50 ML ONE (16:00)
[2019-04-30] MEDS ORDERED: IOPAMIDOL 370 MG/ML 200 ML INFUS..BTL INJ ONE (16:00)
--- NOTE | 2019-04-30 16:00 | NUR ---
Awaiting return call from Dr. Mendez regarding clarification of NJ tube placement order.
--- NOTE | 2019-04-30 16:27 | NUR ---
Per Dr. Cagle, scottie to insert NG tube on patient and then have radiology advance to MD.
--- NOTE | 2019-04-30 16:30 | NUR ---
Nutrition Intervention Note RD Recommendation(s) for Physician: The patient meets criteria for MODERATE protein-calorie malnutrition. -Rec initiating Vital AF 1.2 @20mL/hr, advance as tolerated, to goal rate of 60mL/hr, providing 1728kcal, 108g protein, 1168mL water -50mL water flushes q 4hr, additional per MD -Check tolerance, labs and weight daily Plan of Care: RD following, monitoring for tolerance and adequacy, TF rec Nutrition reason for involvement: MD consult Tube feeding, Follow up RD Assessment (04/30) Pt was discussed during AM rounds. NJ tube to be placed today. Apparently, pt was not tolerating PO diet and complained of postprandial abdominal pain. + BM. RD was consulted for TF recommendation. Will communicate TF rec with RN. Will continue to monitor and follow. (04/24) Chart reviewed. Labs and meds reviewed. 43yo M, who was admitted for 1 day onset of abdominal pain. Lipase, TG and cholesterol have trend down. Pt was on Dilaudid for pain management. Visited pt in the room. Pt reported watching his diet but had occasional 1-2 beers a week. Pt with history of pancreatitis in the past and was given low fat diet instructions. Pt was following the diet for a long time but fell off in the last couple months. Pt developed pain after having some alcohol with his friends over the weekend. Pt was motivated to get back to a healthier eating habits once d/c from here. Pt and had no other question during my time of visit. Will continue to monitor and follow. Principal Problems/Diagnoses: pancreatitis, hypertriglyceridemia PMH: Diabetes, hypertension, and hyperlipidemia I/O: +1300mL/ no output recorded GI: abdomen flat, soft, non-tender, flatus present Skin: intact Labs: No labs for 04/30 Meds: insulin, dilaudid, lipitor Ht:70 in Wt: 215lb 04/24, 213lb 04/30 BMI: 30.8kg/m2 IBW: 166lb +/- 10% Malnutrition Evaluation (04/30/2019) The patient meets criteria for MODERATE protein-calorie malnutrition. Energy intake: <75% of estimated energy requirements for >7 days Weight loss: 1-2% in 1 week (Acute) Fat loss: no loss identified Muscle loss: no loss identified Supporting Evidence: Fluid accumulation: no accumulation identified Functional Status: no changes Nutrition Prescription (Diet Order): NPO Estimated Nutritional Needs: Calories: 1746 1940kcal(18-20g/kg/d) Weight used: CBW Protein: 97 145g (1-1.5g/kg/d) Weight used: CBW Diet Adequacy: Not meeting calorie needs, Not meeting protein needs Tolerance: Not tolerating PO Diet Education Needs Assessment: Diet education not indicated. Received prior diet education on diabetes and pancreatitis. Pt was aware of diet restrictions. No other question during time of visit Nutrition Care Level: moderate (new TF) Nutrition Diagnosis: Inadequate oral intake related to chronic pancreatitis as evidenced by pt complained of postprandial abdominal pain and required EN as main source of nutrition. Goal: Patient will meet 75-100% of estimated needs by follow up Progress: Not Progressing Interventions: Composition, Rate, Route Monitoring/Evaluation: Total energy intake, Total protein intake, Formula/Solution, Weight change Signed: Marjan Davila MS, RD, LD
--- NOTE | 2019-04-30 17:20 | NUR ---
12Fr NG tube inserted on patient. Patient currently leaving unit via stretcher for NJ tube placement. Addendum: 04/30/19 at 1906 by Emil Stratton RN 16 fr ng tube
[2019-04-30] MEDS ORDERED: DIATRIZOATE MEGL/DIATRIZOA SOD 30 ML BTL PO ONE (17:43)
--- NOTE | 2019-04-30 17:57 | NUR ---
Patient returned to unit from procedure. No signs of distress at this time. All safety measures in place. Family at bedside. Will continue to monitor.
[2019-04-30] MEDS: ONDANSETRON HCL INJ 2MG/ML 2ML 2 MG/ML VIAL IV PRN (17:58)
--- NOTE | 2019-04-30 18:59 | NUR ---
Report given to night nurse. Patient in stable condition, no signs of distress or c/o pain at this time. All safety measures in place. Family at bedside.
[2019-04-30] MEDS: FENOFIBRATE 145 MG TAB PO SCH (22:00)
[2019-04-30] MEDS: ATORVASTATIN 40 MG TAB PO SCH (22:00)
[2019-05-01] VITALS (8 sets, daily range): BP systolic 124–146; BP diastolic 80–87
--- NOTE | 2019-05-01 00:53 | Progress Note ---
DATE: 04/30/19 SUBJECTIVE: The patient reports some improvement in abdominal pain. He successfully has had NJ placement under fluoroscopy by IR. REVIEW OF SYSTEMS: GENERAL: No fever or chills. CVS: No chest pain or palpitation. RESPIRATORY: No cough or expectoration. MEDICATIONS: Reviewed as per OCT. PHYSICAL EXAMINATION: VITAL SIGNS: Temperature 96.2, pulse 110, respirations 20, blood pressure 146/90, oxygen saturation 98% on room air. GENERAL: Not in any acute distress. Oral mucosa is moist. NJ is in place. ABDOMEN: Soft. Mild epigastric and right upper quadrant tenderness on deep palpation without rebound, rigidity, or guarding. Positive bowel sounds. LABORATORY DATA: None today. 1. CT of the abdomen with contrast repeated today that showed continued evolution of necrotizing pancreatitis with interval increase in extent of associated right peritoneal fluid. Mesenteric and portal vasculature remains intact. 2. Hepatomegaly and severe hepatic steatosis. 3. Unchanged right lower lobe pulmonary nodule. In a low risk patient, no followup examination is warranted. In a high this patient, consider 12-month CT followup examination. IMPRESSION: Acute pancreatitis secondary to alcohol and hypertriglyceridemia, got complicated with peripancreatic fluid collection. It is also progressing into necrotizing pancreatitis. PLAN: Start post pyloric feeding through the NJ tube. He is allowed to have a clear liquid as long as he is able to tolerate. The patient's necrotizing pancreatitis will need a longtime to recover completely. Therefore, it is likely the patient may go home on NJ feeding. Johann Cagle MD SA/LEXIE /[id number] STEPHANIE
[2019-05-01] MEDS: HYDROMORPHONE 2MG/ML 2 MG/ML ML IV PRN ×3 (02:06→21:43)
[2019-05-01 05:28] LABS: BASOPHILS % 0.2 % (0.0-1.0); EOSINOPHILS # (AUTO) 0.3 (0.0-0.4); EOSINOPHILS % 2.5 % (0.0-6.0); HEMATOCRIT 33.8 % (38.2-49.6); HEMOGLOBIN 11.8 g/dL (14.0-18.0); LYMPHOCYTES # (AUTO) 1.4 (1.0-3.2); LYMPHOCYTES % 11.7 % (18.0-39.1); MEAN CORPUSCULAR HEMOGLOBIN 30.4 pg (28-32); MEAN CORPUSCULAR HGB CONC 34.9 g/dL (31-35); MEAN CORPUSCULAR VOLUME 87.1 fL (81-99); MONOCYTES # (AUTO) 1.6 (0.2-0.8); MONOCYTES % 13.4 % (4.4-11.3); NEUTROPHILS # (AUTO) 7.1 (2.1-6.9); NEUTROPHILS % 58.6 % (38.7-80.0); RED BLOOD COUNT 3.88 x10e6/uL (4.3-5.7); RED CELL DISTRIBUTION WIDTH 12.3 % (11.7-14.4)
[2019-05-01 05:46] LABS: ALANINE AMINOTRANSFERASE 40 IU/L (0-55); ALBUMIN 2.3 g/dL (3.5-5.0); ALBUMIN/GLOBULIN RATIO 0.6 (0.8-2.0); ALKALINE PHOSPHATASE 54 IU/L (40-150); ANION GAP 14.1 mmol/L (8-16); BLOOD UREA NITROGEN 13 mg/dL (7-26); BUN/CREATININE RATIO 17 (6-25); CARBON DIOXIDE 23 mmol/L (22-29); CHLORIDE 96 mmol/L (98-107); CREATININE, SERUM 0.75 mg/dL (0.72-1.25); EST GLOMERULAR FILTRATION RATE > 60 ML/MIN (60-); GLUCOSE 240 mg/dL (74-118); PHOSPHORUS 3.3 MG/DL (2.3-4.7); POTASSIUM 3.1 mmol/L (3.5-5.1); SODIUM 130 mmol/L (136-145)
[2019-05-01] MEDS ORDERED: CHLORASEPTIC SPRAY 177 ML BTL MM PRN ×2 (06:00)
[2019-05-01 06:24] LABS: EOSINOPHILS % (MANUAL) 2 % (0-7); HYPOCHROMASIA SLIGHT; LYMPHOCYTES % (MANUAL) 11 % (19-48); MONOCYTES % (MANUAL) 10 % (3.4-9.0); NEUTROPHILS % (MANUAL) 77 % (40-74); PLATELET MORPHOLOGY COMMENT FEW EDTA CLUMPING; RBC MORPHOLOGY COMMENT ABNORMAL
[2019-05-01 06:28] LABS: PLATELET COUNT 228 x10e3/uL (140-360)
[2019-05-01] MEDS ORDERED: POTASSIUM CHLORIDE 20MEQ/100ML 200 ML IV ONE (08:30)
--- NOTE | 2019-05-01 08:30 | NUR ---
K3.1. notified. See orders
[2019-05-01] MEDS ORDERED: SODIUM CHLORIDE 0.9% 250ML 250 ML ONE ×3 (09:15→13:23)
[2019-05-01] MEDS: INSULIN LISPRO 100 UNIT/1 ML 3ML VIAL SQ SCH ×4 (09:30→21:00)
[2019-05-01] MEDS: PANCRELIPASE 6000 ER CAPSULE PO SCH ×3 (09:30→17:55)
--- NOTE | 2019-05-01 09:30 | NUR ---
Vital 1.2 increased to 30cc/hr via right nasojejunal tube. Denies nausea. No residual noted
[2019-05-01] MEDS: HYDROCODONE/APAP 10MG-325MG TAB PO PRN ×3 (09:31→17:55)
[2019-05-01] MEDS: METOPROLOL TARTRATE 25 MG TAB PO SCH ×2 (09:31→17:55)
--- NOTE | 2019-05-01 12:35 | Progress Note ---
DATE: SUBJECTIVE: The patient reports that he had a CT scan done yesterday showing continuation of his severe pancreatitis. So, therefore an enteral feeding tube was placed. He is now on jejunal tube feeds. Currently, he states his pain is better overall since he has been n.p.o. for a few days. OBJECTIVE: VITAL SIGNS: Temperature is 97.2, pulse 107, blood pressure 129/80, saturations 96% on room air. GENERAL: The NG tube down his right nares with the tube feeds going on. CARDIOVASCULAR: Regular rate and rhythm. LUNGS: Clear to auscultation bilaterally. ABDOMEN: Soft. Good bowel sounds. It is tender in the midepigastric area, but no peritoneal signs. EXTREMITIES: No clubbing or cyanosis. NEUROLOGIC: Nonfocal. ASSESSMENT AND PLAN: 1. Necrotizing pancreatitis. Continue with current tube feeds and n.p.o. status. 2. Hyperlipidemia. Continue current care and monitoring. 3. Abdominal pain. Continue with pain control. 4. Tachycardia. Continue to monitor. 5. Diabetes. Continue to monitor. Please see also chart for full details. MD GAYLA Crenshaw/MODL /[id number]
--- NOTE | 2019-05-01 19:20 | NUR ---
Report given to oncoming nurse of patient's status. Resting in bed, side rails upx2,call light within reach, family at bedside. No s/s of acute distress noted.
--- NOTE | 2019-05-01 19:23 | NUR ---
Patient received lying in bed. AAO x 3. Family at bedside. Patient had complaints of pain to his right cheek which appears swollen (11/12). Respirations even and non-labored. Telemetry rhythm recorded as ST @107. Tube feeding infusing at 30 cc/hr. Patient instructed to call for assistance when needed. Call light within reach.
--- NOTE | 2019-05-01 20:47 | NUR ---
Patient complained that the right side cheek has become swollen since about 4pm today. Patient wants to know if he could get antibiotic treatment. Dr. Brian gordon. New order received for Cefepime 1g IV Q8H.
[2019-05-01] MEDS: ATORVASTATIN 40 MG TAB PO SCH (21:40)
[2019-05-01] MEDS: FENOFIBRATE 145 MG TAB PO SCH (21:40)
[2019-05-01] MEDS: CEFEPIME 1GM/NS 0.9% 50 ML 50 ML IV SCH (21:43)
--- NOTE | 2019-05-01 22:00 | NUR ---
Patient's residual from NJ tube checked. No residual noted. Patient's feeding increased from 30 c to 40 cc/hr. HOB elevated. Will continue to monitor.
--- NOTE | 2019-05-01 22:48 | Progress Note ---
DATE: 05/01/2019 GI Progress Report SUBJECTIVE: The patient is tolerating NJ feeding. Reporting no abdominal pain. He is also tolerating clear liquids by mouth. He is not reporting any postprandial pain. No nausea or vomiting. Regular bowel movements. He is complaining of some swelling and pain in the right jaw. No fever or chills. REVIEW OF SYSTEMS: GENERAL: No fatigue or weakness, no fever or chills. CVS: No chest pain or palpitations. RESPIRATORY: No cough or expectoration. MEDICATIONS: Reviewed as per OCT. PHYSICAL EXAMINATION: VITAL SIGNS: Temperature 98.5, pulse 94, respiration 18, blood pressure 146/87, oxygen saturation 98% on room air. GENERAL: Not in any acute distress. Oral mucosa is moist. NJ in place. Anicteric sclerae. ABDOMEN: Soft. Mild palpable right upper quadrant and epigastric pain without rebound, rigidity, or guarding. Positive bowel sounds. LABORATORY DATA: WBC 12.19, hemoglobin 11.8, hematocrit 33.8, platelet count 228. Sodium 130, potassium 3.1, chloride 96, bicarb 23, BUN 13, creatinine 0.75. Liver enzymes normal. PT 12.5, INR 0.89, PTT 33. Urinalysis negative. ASSESSMENT: Necrotizing pancreatitis without any distant complications. PLAN: Continue NJ feeding, continue clear liquid diet as per the patient's desire. Monitor him clinically. If the patient does not complain about postprandial pain, then slowly we can wean off the NJ feeding and resume oral diet. I will have my partner who is covering me over the weekend, Dr. Zamudio. He will follow the patient. Johann Cagle MD SA/MODL /[id number]
[2019-05-02] VITALS (7 sets, daily range): BP systolic 125–142; BP diastolic 85–91
[2019-05-02] MEDS: HYDROMORPHONE 2MG/ML 2 MG/ML ML IV PRN ×2 (00:57→21:54)
[2019-05-02] MEDS: HYDROCODONE/APAP 10MG-325MG TAB PO PRN ×4 (05:00→17:10)
[2019-05-02] MEDS: CEFEPIME 1GM/NS 0.9% 50 ML 50 ML IV SCH ×3 (05:52→22:00)
--- NOTE | 2019-05-02 07:00 | NUR ---
Walking rounds done. Patient resting comfortably. Shift report given to oncoming nurse.
--- NOTE | 2019-05-02 07:06 | NUR ---
PT ASLEEP RESP EVEN AND UNLABORED AT THIS TIME, NO DISTRESS NOTED, PT EASILY AROUSED TO VOICE, PT HAS FAMILY MEMBER AT BEDSIDE, TUBE FEEDING INFUSING AT THIS TIME TOLERATING WELL. CALL LIGHT IN REACH.
[2019-05-02] MEDS: INSULIN LISPRO 100 UNIT/1 ML 3ML VIAL SQ SCH ×4 (07:30→21:05)
[2019-05-02] MEDS: PANCRELIPASE 6000 ER CAPSULE PO SCH ×3 (08:00→17:02)
[2019-05-02] MEDS: METOPROLOL TARTRATE 25 MG TAB PO SCH ×2 (09:00→17:02)
--- NOTE | 2019-05-02 19:37 | NUR ---
report given to oncoming nurse, pt stable.
--- NOTE | 2019-05-02 19:38 | NUR ---
Patient received sitting up in bed. AAO x 3. at bedside. No acute distress noted. Tube feeding in progress at 40 cc/hr. Call light within reach.
[2019-05-02] MEDS: FENOFIBRATE 145 MG TAB PO SCH (20:55)
[2019-05-02] MEDS: ATORVASTATIN 40 MG TAB PO SCH (20:55)
--- NOTE | 2019-05-02 21:11 | NUR ---
Dr. Torres paged regarding renewing order for Dilaudid 1.5 mg Q3H PRN. Order received to renew medication.
[2019-05-03] VITALS (8 sets, daily range): BP systolic 117–140; BP diastolic 82–90
[2019-05-03] MEDS: HYDROMORPHONE 2MG/ML 2 MG/ML ML IV PRN ×3 (01:22→21:03)
--- NOTE | 2019-05-03 02:45 | NUR ---
Patient's tube feeding advanced from 40 cc / hr to 50 cc/ hr. Patient tolerated well. Will continue to monitor.
--- NOTE | 2019-05-03 03:24 | Progress Note ---
DATE: 05/02/2019 Cardiology Progress Note SUBJECTIVE: The patient denies chest pain or shortness of breath. Reports his dull pain has improved. OBJECTIVE: VITAL SIGNS: Temperature 97.3 degrees, pulse 96, respiratory rate 18, blood pressure 130/80, oxygen saturation 100%. GENERAL: Awake, alert, in no distress. LUNGS: Clear to auscultation bilaterally. No wheezes or crackles. CARDIOVASCULAR: Normal rate, regular rhythm. No murmur. Normal S1 and S2. ABDOMEN: Soft, nontender. EXTREMITIES: No edema. CARDIAC MEDICATIONS: Metoprolol tartrate 25 mg p.o. b.i.d., atorvastatin 40 mg p.o. at bedtime, and fenofibrate 145 mg p.o. at bedtime. LABORATORY DATA: None today. TELEMETRY: Normal sinus rhythm. IMPRESSION: 1. Necrotizing pancreatitis. 2. Hypertriglyceridemia. 3. Sinus tachycardia. 4. Chest pain. 5. Hypertension. 6. Diabetes mellitus. RECOMMENDATIONS: Treatment of pancreatitis per Primary Service and GI. The patient is now receiving jejunal enteric feeds. His abdominal pain has resolved. Continue current atorvastatin and fenofibrate. He will need addition of Vascepa as outpatient as this is not on formulary. Once he has improved from pancreatitis, given that he will need ischemic evaluation with a nuclear stress test. This can be done as an outpatient. 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 We will monitor for now given his current acute necrotizing pancreatitis. Continue current cardiac medications. The patient's blood pressure is controlled. Thank you for this consult. We will continue to follow. Angella Rios MD ABS/MODL /[id number]
[2019-05-03] MEDS: CEFEPIME 1GM/NS 0.9% 50 ML 50 ML IV SCH ×3 (06:00→22:00)
--- NOTE | 2019-05-03 07:07 | NUR ---
PT ASLEEP RESP EVEN AND UNLABORED AT THIS TIME, NO DISTRESS NOTED, TUBE FEEDING INFUSING, PT EASILY AROUSED TO VOICE, PT HAS FAMILY MEMBER AT BEDSIDE, CALL LIGHT IN REACH.
--- NOTE | 2019-05-03 07:11 | NUR ---
Shift report given to oncoming nurse.
[2019-05-03] MEDS: INSULIN LISPRO 100 UNIT/1 ML 3ML VIAL SQ SCH ×4 (07:30→21:00)
[2019-05-03] MEDS: PANCRELIPASE 6000 ER CAPSULE PO SCH ×3 (09:10→17:40)
[2019-05-03] MEDS: METOPROLOL TARTRATE 25 MG TAB PO SCH ×2 (09:11→17:41)
[2019-05-03] MEDS: HYDROCODONE/APAP 10MG-325MG TAB PO PRN ×3 (09:15→17:10)
--- NOTE | 2019-05-03 16:05 | NUR ---
Visit made by the Spiritual Care Department Pastoral Visitor, Earl Howell. PV provided pastoral presence, hospitality, and supportive listening. Pastoral Visitor informed pt/family of the scope of [employer] and availability. DOUGLAS GUERRERO Plant Health Care Technician Spiritual Care Department O: [phone] Pager: [phone] ([phone] number calling from)
--- NOTE | 2019-05-03 19:25 | NUR ---
Patient received sitting up in bed. AAO x 4. Family at bedside. No acute distress noted. Call light within reach.
--- NOTE | 2019-05-03 19:39 | NUR ---
Report given to oncoming nurse, pt stable.
[2019-05-03] MEDS: ATORVASTATIN 40 MG TAB PO SCH (21:03)
[2019-05-03] MEDS: FENOFIBRATE 145 MG TAB PO SCH (21:03)
[2019-05-04] VITALS (9 sets, daily range): BP systolic 110–136; BP diastolic 73–90
--- NOTE | 2019-05-04 00:58 | Progress Note ---
DATE: 05/03/2019 Cardiology Progress Note SUBJECTIVE: The patient denies chest pain or shortness of breath. OBJECTIVE: VITAL SIGNS: Temperature 97.5 degrees, pulse 94, respiratory rate 18, blood pressure 120/82, and oxygen saturation 98%. GENERAL: Awake, alert, in no acute distress. LUNGS: Clear to auscultation bilaterally. No wheezes or crackles. CARDIOVASCULAR: Normal rate. Regular rhythm. No murmur. Normal S1, S2. ABDOMEN: Soft, nontender. EXTREMITIES: No edema. CARDIAC MEDICATIONS: 1. Atorvastatin 40 mg p.o. q.h.s. 2. Fenofibrate 145 mg p.o. daily. 3. Metoprolol tartrate 25 mg p.o. b.i.d. LABORATORY DATA: Labs none today. TELEMETRY: Normal sinus rhythm. IMPRESSION: 1. Necrotizing pancreatitis. 2. Hypertriglyceridemia. 3. Sinus tachycardia, resolved. 4. Chest pain. 5. Diabetes mellitus. 6. Hypertension. RECOMMENDATIONS: Treatment of pancreatitis per primary service and GI. The patient is now receiving jejunal enteric feeds and the abdominal pain has resolved. He states his diet will be advanced tomorrow. In the meantime, continue current cardiac medications including atorvastatin and fenofibrate. He will need addition of Vascepa as an outpatient. Once he has improved from his pancreatitis, he will need ischemic evaluation with a nuclear stress test, which can be done as an outpatient. CTA of the abdomen and pelvis demonstrates significant stenosis in the celiac artery. Monitor for now. Continue current cardiac medications. Blood pressure is controlled. Thank you for this consult. We will continue to follow. Angella Rios MD ABS/MODL /[id number]
[2019-05-04] MEDS: HYDROMORPHONE 2MG/ML 2 MG/ML ML IV PRN ×2 (01:42→22:10)
[2019-05-04] MEDS: CEFEPIME 1GM/NS 0.9% 50 ML 50 ML IV SCH ×3 (05:59→21:13)
[2019-05-04] MEDS: HYDROCODONE/APAP 10MG-325MG TAB PO PRN ×4 (06:00→19:05)
--- NOTE | 2019-05-04 07:00 | NUR ---
Walking rounds done. Shift report given to oncoming nurse.
[2019-05-04] MEDS: PANCRELIPASE 6000 ER CAPSULE PO SCH ×3 (08:10→17:25)
[2019-05-04] MEDS: METOPROLOL TARTRATE 25 MG TAB PO SCH ×2 (08:10→17:25)
[2019-05-04] MEDS: INSULIN LISPRO 100 UNIT/1 ML 3ML VIAL SQ SCH ×4 (08:10→21:00)
[2019-05-04] MEDS ORDERED: SODIUM CHLORIDE 0.9% 250ML 250 ML ONE (11:39)
--- NOTE | 2019-05-04 13:57 | Progress Note ---
DATE: Cardiology Progress Note SUBJECTIVE: The patient is feeling better, able to tolerate oral intake with minimal abdominal pain. OBJECTIVE: VITAL SIGNS: Temperature is 97.2, heart rate 93, respirations 18, blood pressure is 136/90, ox saturation 98% on room air. GENERAL: Well appearing, no apparent distress. CARDIOVASCULAR: Regular rate and rhythm. LUNGS: Clear to auscultation. ABDOMEN: Soft, nontender, and nondistended. EXTREMITIES: No edema. CARDIOVASCULAR MEDICATIONS: Reviewed. LABORATORY DATA: Reviewed. Glucose 289. TELEMETRY: Monitoring revealed sinus rhythm and sinus tachycardia. IMPRESSION: 1. Necrotizing pancreatitis. 2. Hypertriglyceridemia. 3. Sinus tachycardia. 4. Diabetes mellitus. 5. Hypertension. 6. Peripheral arterial disease. RECOMMENDATIONS: Continue his treatment of pancreatitis per primary and Gastroenterology Services. Continue current cardiovascular medications including atorvastatin and fenofibrate. We will need to check a triglyceride level prior to discharge and may need to add the CPAP as an outpatient. His CT angiogram of the abdomen and pelvis showed celiac artery stenosis. We can manage this as an outpatient. DO WHIT Suh/MODL /[id number]
--- NOTE | 2019-05-04 16:41 | NUR ---
Nutrition Follow-up Note RD Recommendation(s) for Physician: The patient meets criteria for MODERATE protein-calorie malnutrition. - Rec advancing diet to low fat/ ADA 2000 as medically appropriate - Rec taper down tube feeding as diet advanced - Check PO tolerance, labs and weight daily Plan of Care: RD following, monitoring for tolerance and adequacy, TF rec Nutrition reason for involvement: Follow up RD Assessment (05/04) Pt was discussed during AM rounds. Tube feeding was turned down from 60mL/hr to 40mL/hr yesterday as pt was "feeling weird in the stomach." Visited pt in the room. Pt reported good tolerance with clear liquid diet for breakfast and lunch today. Diet has been advanced to full liquid. TF was running at 40mL/hr with Vital AF 1.2. Pt denied any abdominal pain, nausea or vomiting during time of visit. Will continue to monitor and follow. (04/30) Pt was discussed during AM rounds. NJ tube to be placed today. Apparently, pt was not tolerating PO diet and complained of postprandial abdominal pain. + BM. RD was consulted for TF recommendation. Will communicate TF rec with RN. Will continue to monitor and follow. (04/24) Chart reviewed. Labs and meds reviewed. 43yo M, who was admitted for 1 day onset of abdominal pain. Lipase, TG and cholesterol have trend down. Pt was on Dilaudid for pain management. Visited pt in the room. Pt reported watching his diet but had occasional 1-2 beers a week. Pt with history of pancreatitis in the past and was given low fat diet instructions. Pt was following the diet for a long time but fell off in the last couple months. Pt developed pain after having some alcohol with his friends over the weekend. Pt was motivated to get back to a healthier eating habits once d/c from here. Pt and had no other question during my time of visit. Will continue to monitor and follow. Principal Problems/Diagnoses: pancreatitis, hypertriglyceridemia PMH: Diabetes, hypertension, and hyperlipidemia I/O: not recorded GI: abdomen flat, soft, non-tender, flatus present Skin: intact Labs: No labs for 05/04, POC glucose 280 - 298 H Meds: cefepime, creon, insulin, dilaudid Ht:70 in Wt: 215lb 04/24, 213lb 04/30; 206.5lb - 05/04 BMI: 30.8kg/m2 IBW: 166lb +/- 10% Malnutrition Evaluation (04/30/2019) The patient meets criteria for MODERATE protein-calorie malnutrition. Energy intake: <75% of estimated energy requirements for >7 days Weight loss: 1-2% in 1 week (Acute) Fat loss: no loss identified Muscle loss: no loss identified Supporting Evidence: Fluid accumulation: no accumulation identified Functional Status: no changes Nutrition Prescription (Diet Order): Full liquid diet Estimated Nutritional Needs: Calories: 1746 1940kcal (18-20g/kg/d) Weight used: CBW Protein: 97 145g (1-1.5g/kg/d) Weight used: CBW Diet Adequacy: meeting calorie needs, meeting protein needs Tolerance: tolerating PO Diet Education Needs Assessment: Diet education not indicated. Received prior diet education on diabetes and pancreatitis. Pt was aware of diet restrictions. No other question during time of visit Nutrition Care Level: moderate (new TF) Nutrition Diagnosis: Inadequate oral intake related to chronic pancreatitis as evidenced by pt complained of postprandial abdominal pain and required EN as main source of nutrition. Goal: Patient will meet 75-100% of estimated needs by follow up Progress: Progressing Interventions: Composition, Rate, Route Monitoring/Evaluation: Total energy intake, Total protein intake, Formula/Solution, Weight change Signed: Marjan Davila MS, RD, LD
[2019-05-04] MEDS: FENOFIBRATE 145 MG TAB PO SCH (21:13)
[2019-05-04] MEDS: ATORVASTATIN 40 MG TAB PO SCH (21:13)
--- NOTE | 2019-05-05 00:09 | Progress Note ---
DATE: 05/04/2019 GI Progress Report SUBJECTIVE: The patient reports no abdominal pain. Tolerating NJ feeding. He is also tolerating clear liquid diet. Diet was advanced to full liquids today, he also tolerated it very well. He has had 1 bowel movement yesterday. REVIEW OF SYSTEMS: GENERAL: No fever or chills. CVS: No chest pain or palpitation. RESPIRATORY: No cough or expectoration. MEDICATIONS: Reviewed as per OCT. PHYSICAL EXAMINATION: VITAL SIGNS: Temperature 96.9, pulse 95, respirations 18, blood pressure 118/73, oxygen saturation 98% on room air. GENERAL: Not in any acute distress. HEENT: NJ feeding in place. Oral mucosa is moist. Anicteric sclerae. ABDOMEN: Soft, nondistended. No palpable epigastric or right upper quadrant tenderness. No mass or hernia. Positive bowel sounds. LABORATORY DATA: WBC 12.19, hemoglobin 11.8, hematocrit 33.8, MCV 87.1, and platelet count 228. Sodium 130, potassium 3.1, chloride 96, bicarb 23, BUN 13, creatinine 0.75, and glucose 240. Liver enzymes normal. Total protein 6.4, albumin 2.3. PT 12.5, INR 0.89. IMPRESSION: Acute necrotizing pancreatitis, clinically significantly improved. PLAN: We will continue NJ feeding tonight. We will serve him solid food breakfast and if the patient does not complain about any abdominal pain, then we can discontinue NJ feeding and send him home to follow in GI Clinic within 1 week after discharge. Johann Cagle MD SA/LEXIE /[id number]
[2019-05-05] MEDS: HYDROMORPHONE 2MG/ML 2 MG/ML ML IV PRN ×2 (01:34→04:38)
[2019-05-05 04:00] VITALS: BP 116/74
[2019-05-05 05:20] LABS: BASOPHILS # (AUTO) 0.1 (0.0-0.1); BASOPHILS % 0.5 % (0.0-1.0); EOSINOPHILS # (AUTO) 0.3 (0.0-0.4); EOSINOPHILS % 3.1 % (0.0-6.0); HEMATOCRIT 33.4 % (38.2-49.6); HEMOGLOBIN 11.6 g/dL (14.0-18.0); LYMPHOCYTES # (AUTO) 1.5 (1.0-3.2); LYMPHOCYTES % 16.6 % (18.0-39.1); MEAN CORPUSCULAR HEMOGLOBIN 30.2 pg (28-32); MEAN CORPUSCULAR HGB CONC 34.7 g/dL (31-35); MONOCYTES % 10.8 % (4.4-11.3); NEUTROPHILS # (AUTO) 6.1 (2.1-6.9); NEUTROPHILS % 66.5 % (38.7-80.0); RED BLOOD COUNT 3.84 x10e6/uL (4.3-5.7)
[2019-05-05 05:31] LABS: PLATELET COUNT 249 x10e3/uL (140-360)
[2019-05-05 05:44] LABS: ALANINE AMINOTRANSFERASE 33 IU/L (0-55); ALBUMIN 2.4 g/dL (3.5-5.0); ALBUMIN/GLOBULIN RATIO 0.6 (0.8-2.0); ALKALINE PHOSPHATASE 51 IU/L (40-150); AMYLASE 69 U/L (25-125); ANION GAP 15.6 mmol/L (8-16); BLOOD UREA NITROGEN 14 mg/dL (7-26); BUN/CREATININE RATIO 20 (6-25); CALCIUM 8.7 mg/dL (8.4-10.2); CARBON DIOXIDE 26 mmol/L (22-29); CHLORIDE 95 mmol/L (98-107); CREATININE, SERUM 0.71 mg/dL (0.72-1.25); EST GLOMERULAR FILTRATION RATE > 60 ML/MIN (60-); GLUCOSE 301 mg/dL (74-118); LIPASE 130 U/L (8-78); POTASSIUM 3.6 mmol/L (3.5-5.1); SODIUM 133 mmol/L (136-145)
[2019-05-05] MEDS: CEFEPIME 1GM/NS 0.9% 50 ML 50 ML IV SCH ×3 (06:12→22:09)
[2019-05-05 08:00] VITALS: BP 109/80
[2019-05-05] MEDS: METOPROLOL TARTRATE 25 MG TAB PO SCH ×2 (08:00→17:00)
[2019-05-05] MEDS: INSULIN LISPRO 100 UNIT/1 ML 3ML VIAL SQ SCH ×4 (08:00→21:47)
[2019-05-05] MEDS: PANCRELIPASE 6000 ER CAPSULE PO SCH ×3 (08:00→17:00)
[2019-05-05] MEDS: HYDROCODONE/APAP 10MG-325MG TAB PO PRN (10:45)
[2019-05-05 12:00] VITALS: BP 113/80
[2019-05-05 16:00] VITALS: BP 126/86
--- NOTE | 2019-05-05 19:21 | NUR ---
Report received and walking rounds complete. Pt resting in bed and in no apparent distress. All safety measures ensured and pt call nunes near. Pt encouraged to use call nunes for assistance.
--- NOTE | 2019-05-05 19:50 | Progress Note ---
DATE: Cardiology Progress Note SUBJECTIVE: The patient is feeling better. Tolerating oral intake without significant abdominal pain. OBJECTIVE: VITAL SIGNS: Temperature is 97.1, heart rate is 71, respirations 16, blood pressure is 116/74, and oxygen saturation 97% on room air. GENERAL: Well appearing, in no apparent distress. CARDIOVASCULAR: Regular rate and rhythm. LUNGS: Clear to auscultation. ABDOMEN: Soft, nontender, and nondistended. EXTREMITIES: No edema. CARDIOVASCULAR MEDICATIONS: Reviewed, include: 1. Metoprolol 25 mg b.i.d. 2. Atorvastatin 40 mg p.o. at bedtime. 3. Fenofibrate 145 mg p.o. at bedtime. LABORATORY DATA: Reviewed. TELEMETRY: Monitoring revealed sinus tachycardia. IMPRESSION: 1. Necrotizing pancreatitis. 2. Hypertriglyceridemia. 3. Sinus tachycardia. 4. Diabetes mellitus. 5. Hypertension. 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 RECOMMENDATIONS: Continue treatment of pancreatitis per primary Gastroenterology teams. We will continue atorvastatin and fenofibrate. Check triglyceride level in the morning. The patient will likely need Vascepa as an outpatient. CT angiogram of the abdomen can be performed as an outpatient to follow up on his peripheral arterial disease. DO WHIT Suh/CHINMAYL /[id number]
[2019-05-05 20:00] VITALS: BP 127/80
[2019-05-05] MEDS: ATORVASTATIN 40 MG TAB PO SCH (21:47)
[2019-05-05] MEDS: FENOFIBRATE 145 MG TAB PO SCH (21:47)
--- NOTE | 2019-05-05 23:31 | Progress Note ---
DATE: 05/05/2019 SUBJECTIVE: The patient reports no more abdominal pain. He tolerated solid food today. NG tube has been removed. He has had a bowel movement yesterday. REVIEW OF SYSTEMS: GENERAL: No fever or chills. CVS: No chest pain or palpitation. RESPIRATORY: No cough or expectoration. MEDICATIONS: Reviewed as per OCT. OBJECTIVE: VITAL SIGNS: Temperature 98.1, pulse 92, respirations 20, blood pressure 126/86, oxygen saturation 97% on room air. GENERAL: Not in any acute distress. HEENT: Oral mucosa is moist. Anicteric sclerae. ABDOMEN: Soft, nondistended, nontender. No palpable mass or hernia. Positive bowel sounds. LABORATORY DATA: WBC 9.10, down from 12.19, hemoglobin 11.6, hematocrit 33.4, MCV 87, and platelet count 249. Sodium 133, potassium 3.6, chloride 95, bicarb 26, BUN 14, and creatinine 0.71. Liver enzymes normal. PT 12.5, INR 0.89, PTT 33. ASSESSMENT: Acute necrotizing pancreatitis, clinically significantly improved. The patient is tolerating oral diet now. PLAN: Continue low cholesterol diet. Observe him overnight. If no abdominal pain, then he can be discharged home tomorrow. The patient has been strictly counseled for complete abstinence from alcohol. He must be taking his anti-lipid medication. We will follow him in my office within 1 to 2 weeks after discharge. Johann Cagle MD SA/LEXIE /[id number]
[2019-05-06] VITALS: BP 120/82
[2019-05-06] MEDS: HYDROCODONE/APAP 10MG-325MG TAB PO PRN (00:04)
[2019-05-06] MEDS: HYDROMORPHONE 2MG/ML 2 MG/ML ML IV PRN (01:15)
[2019-05-06 04:00] VITALS: BP 111/74
[2019-05-06] MEDS: CEFEPIME 1GM/NS 0.9% 50 ML 50 ML IV SCH (05:44)
[2019-05-06 05:45] LABS: CHOL/HDL RATIO 11.5 (3.9-4.7)
--- NOTE | 2019-05-06 07:25 | NUR ---
Walking rounds complete and report given to day shift RN
[2019-05-06] MEDS: INSULIN LISPRO 100 UNIT/1 ML 3ML VIAL SQ SCH (07:30)
[2019-05-06 08:00] VITALS: BP 109/78
[2019-05-06 09:13] VITALS: BP 109/78
[2019-05-06] MEDS: PANCRELIPASE 6000 ER CAPSULE PO SCH (09:13)
[2019-05-06] MEDS: METOPROLOL TARTRATE 25 MG TAB PO SCH (09:13)
[2019-05-06] MEDS ORDERED: LIPITOR20 MG (09:25)
--- NOTE | 2019-05-06 09:45 | NUR ---
patient discharged home, Alert with no distress, IV canula removed with tip intact, prescription given, at bed side, transported via wheelchair to [facility]
--- NOTE | 2019-05-06 20:07 | Discharge Summary ---
DISCHARGE DIAGNOSES: 1. Acute necrotizing pancreatitis. 2. Hyperlipidemia. 3. Hypertension. 4. Diabetes. HISTORY OF PRESENT ILLNESS/HOSPITAL COURSE: See hospital chart for full details. The patient is a 43-year-old gentleman, who has a history of pancreatitis in the past, who presented with abdominal pain, was found to have pancreatitis and severe hypertriglyceridemia and hyperlipidemia as well as diabetes. He was brought in, placed on n.p.o. status, IV pain medications and bowel rest, where he made significant improvement. Initial CT scan was unremarkable, but a repeat CT scan looking for possible mesenteric ischemia showed a significant increase in pancreatitis. The patient was seen by GI as well as Cardiology. The patient was improving initially, so he was started on clear liquid diets, but unfortunately this caused a rebound increase in his abdominal pain with a repeat CT scan showed worsening of his pancreatitis. So, at that point, he was made strict n.p.o. and he had an enteral feeding tube placed into the jejunum where he was able to have feeds, which he tolerated very well and after a couple days of complete bowel rest, his pain subsided and we waited a few more days before initiating any type of diet, at which point we did initiate with clear liquids. He was able to tolerate that well without any pain and then he went to full liquids without any pain, and then on the day before discharge, he was able to tolerate a GI soft diet without any pain. So, the enteral feeding tube was removed and he continued to still do well without any pain. At the time of discharge, he was well over 72 hours of pain free completely, was tolerating the p.o. intake and the patient fully understands to eat small frequent meals of low fatty content. He knows he is going to take his cholesterol medicines, which he states he has been somewhat noncompliant with at times as well as continue to monitor his diabetes. He will follow up with me in approximately 1-2 weeks. Please see hospital chart for full details. MD GAYLA Crenshaw/MODYusuf /[id number]
--- NOTE | 2019-05-08 13:58 | Diagnostic Imaging Report ---
PROCEDURE: Image guided repositioning of nasogastric feeding tube. Procedural Personnel Attending physician(s): Katheryn Alberto MD Fellow physician(s): None Resident physician(s): None Advanced practice provider(s): None Pre-procedure diagnosis: Abdominal pain, pancreatitis Post-procedure diagnosis: Same Indication: Malposition of indwelling tube, need for postpyloric positioning. Additional clinical history: None Complications: No immediate complications. IMPRESSION: Fluoroscopically guided advancement of indwelling nasogastric tube to postpyloric position, terminating in the third part of the duodenum. Plan: The tube is ready for use. PROCEDURE SUMMARY: -Fluoroscopically guided repositioning of indwelling nasogastric feeding tube to postpyloric position, terminating in the distal duodenum. - Additional procedure(s): None PROCEDURE DETAILS: Pre-procedure Consent: Informed consent for the procedure including risks, benefits and alternatives was obtained and time-out was performed prior to the procedure. Preparation: The site was prepared and draped using maximal sterile barrier technique including cutaneous antisepsis. Anesthesia/sedation Level of anesthesia/sedation: No sedation Feeding tube repositioning A wire was advanced through the indwelling nasogastric feeding tube and advanced postpylorically. The tube was then advanced over the wire to the third part of the duodenum. Contrast injection was performed, confirming postpyloric placement. Contrast Contrast agent: Isovue 300 Contrast volume (mL): 10 Radiation Dose Fluoroscopy time (minutes): 6.4 Reference air kerma (mGy): 86.2 Additional Details Additional description of procedure: None Equipment details: None Specimens removed: None Estimated blood loss (mL): None Attestation Signer name: Katheryn Alberto MD I attest that I was present for the entire procedure. I reviewed the stored images and agree with the report as written. Signed by: Katheryn Alberto MD on 05/08/2019 1:55 PM
== END 2019-05-06 09:52 | disposition home or self-care (01) | DRG 982 ==
LOC: ER 11:49 → ERHOLD 14:22 → MED/SURG2 21:22
PROVIDERS: ADMIT Internal Medicine; ATTEND Internal Medicine
PROC: 0DW Gastrointestinal System, Revision (ICD-10-PCS; principal; 2019-04-30)
PROC: 0DHA3UZ Insertion of Feeding Device into Jejunum, Percutaneous Approach (ICD-10-PCS; 2019-05-06)
DX: K85.91 Acute pancreatitis with uninfected necrosis, unspecified (principal); E44.0 Moderate protein-calorie malnutrition; E78.5 Hyperlipidemia, unspecified; I10 Essential (primary) hypertension; E11.9 Type 2 diabetes mellitus without complications; E78.1 Pure hyperglyceridemia
CPT/HCPCS: 36415; 43761; 49441; 70450; 71045; 74160; 74174; 74177; 74470; 76000; 76705; 80053; 80061; 81001; 82150; 82550; 82553; 82948; 83036; 83605; 83690; 83735; 84100; 84443; 84484; 85025; 85610; 85730; 87086; 93005; 93306; 99285; J0692; J1170; J1817; J2270; J2405; J3480; J7030; J7050; Q9967